=== PATIENT | male | born 1995 | race Hispanic/Latino ===

== ENCOUNTER 2016-12-12 18:58 | Emergency (ER) | payer OTHER ==
[~2016-12-12 18:58] MED LIST: LOTRIMIN CR1 %/30 GM TOP
--- NOTE | 2016-12-12 20:06 | ED GI/GU/ABDOMINAL COMPLAINT ---
History of Present Illness General Chief Complaint: Male Genitourinary Problems Stated Complaint: HEMATURIA Source: family Exam Limitations: physical impairment Vital Signs & Intake/Output Vital Signs & Intake/Output Vital Signs Date Time Temp Pulse Resp B/P Pulse O2 O2 Flow FiO2 Ox Delivery Rate 12/13 2111 98.6 99 18 94/58 95 Room Air 12/12 2025 Room Air 12/12 1903 98.9 83 20 95/62 97 Room Air ED Intake and Output 12/13 0000 12/12 1200 Intake Total Output Total 100 Balance -100 Output, Urine 100 Patient 107 lb Weight Allergies Coded Allergies: No Known Allergies (12/12/16) Reconcile Medications Albuterol Sulfate (Proair Hfa) 90 MCG HFA.AER.AD 2 PUF INH PRN ASTHMA ( Reported) Ammonium Lactate 12 % LOTION 1 CELESTE TOP DAILY SKIN (Reported) Ciprofloxacin HCl (Cipro) 250 MG TABLET 1 TAB PO BID UTI Divalproex Sodium (Divalproex Sodium ER) 500 MG TAB.ER.24H 1 TAB PO TID SEIZURES (Reported) Levetiracetam 500 MG TABLET 2 TAB PO BID SEIZURES (Reported) Oxcarbazepine 300 MG TABLET 2 TAB PO BID SEIZURES (Reported) Triage Note: TRIAGE: PT TO ER WITH STEP-SISTER AND STEP-MOTHER C/C HEMATURIA SINCE THIS MORNING. PT ROCKING BACK AND FORTH AND NON VERBAL AT BASELINE PER FAMILY THOUGH UNABLE TO SAY WHAT HIS MEDICAL HISTORY IS. Triage Nurses Notes Reviewed? 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 He is incontinent and wears a diaper at all times, twice today when they changed his diaper, they noted a small amount of blood. Patient has no history of same. No fever, no flulike illness, no vomiting, no signs that he is in any pain. He has had a normal appetite. No history of kidney stones. (SUMMER LANDRY) Past History Travel History Traveled to [place] past 21 day No Medical History Any Pertinent Medical History? 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 No (SUMMER LANDRY) Review of Systems Review of Systems Constitutional: Reports: see HPI. EENTM: Reports: no symptoms. Respiratory: Reports: no symptoms. Cardiovascular: Reports: no symptoms. GI: Reports: no symptoms. Genitourinary: Reports: see HPI. Musculoskeletal: Reports: no symptoms. Skin: Reports: no symptoms. Neurological/Psychological: Reports: no symptoms. Hematologic/Endocrine: Reports: no symptoms. Immunologic/Allergic: Reports: no symptoms. All Other Systems: Reviewed and Negative Comments Limited secondary to patient's nonverbal status (SUMMER LANDRY) Physical Exam Physical Exam Ears, Nose, Throat, Mouth: moist mucous membrane Neck: normal inspection, supple Respiratory: normal breath sounds, chest non-tender, no respiratory distress Cardiovascular: regular rate/rhythm Gastrointestinal: normal bowel sounds, soft, non-tender, no organomegaly Male Genitals: normal genitalia, small staining of blood noted in patient's diaper mixed with urine. Back: no vertebral tenderness, no CVA tenderness Skin: intact, normal color, warm/dry Comments: Hydrocephaly noted Core Measures ACS in differential dx? No Severe Sepsis Present: No Septic Shock Present: No (SUMMER LANDRY) Progress Differential Diagnosis: AAA, AMI, appendicitis, biliary colic, bowel obstruction , colon cancer, cholecystitis, diverticulitis, epididymitis, esophageal varices, gastritis, hepatitis, hernia, hemorrhoids, ischemic bowel, inflamm bowel dis, Funmilayo-Cady tear, orchitis, pancreatitis, prostatitis, peptic ulcer, PUD/GERD, perforated viscous, pyelonephritis, SBO, STD, testicular torsion, ureterolithiasis, urinary retention, urethritis, UTI/pyelo Plan of Care: Orders Procedure Date/time Status CULTURE,URINE 12/12 1954 Active URINALYSIS 12/12 1954 Complete Laboratory Tests 12/12/16 2015: Urine Color BLDY H, Urine Clarity TURBD H, Urine pH 6.5, Ur Specific [place] 1.025, Urine Protein >=300 H, Urine Ketones TRACE H, Urine Nitrite POS H, Urine Bilirubin NEG@ICTO, Urine Urobilinogen 2.0 H, Ur Leukocyte Esterase SMALL H, Ur Microscopic SEDIMENT EXAMINED, Urine RBC PACKD H, Urine WBC > 75 H, Ur Epithelial Cells FEW, Urine Bacteria MANY H, Urine Hemoglobin LARGE H, Urine Glucose NEG Microbiology 12/12 2014 URINE ROUT: Urine Culture - RES GRAM NEGATIVE RODS Initial ED EKG: none Comments: Straight cath urine sent, positive for UTI. Patient given Cipro by mouth and prescription for same, to return with signs of worsening infection, fever, nausea, vomiting, abdominal pain. Discussed with patient's family who understand and agree with plan. Urine culture was sent (SUMMER LANDRY) Departure Departure Disposition: HOME OR SELF CARE Condition: Stable Clinical Impression Primary Impression: UTI (urinary tract infection) Qualifiers: Urinary tract infection type: acute cystitis Hematuria presence: with hematuria Qualified Code: N30.01 - Acute cystitis with hematuria Referrals: UNKNOWN (PCP/Family) Additional Instructions: Take antibiotics as directed. Take Motrin and Tylenol for fever and pain. Return with worsening fever, flulike illness, nausea vomiting or back pain. Return if you are unable to keep fluids down. Departure Forms: Customer Survey General Discharge Information Prescriptions: Current Visit Scripts Ciprofloxacin HCl (Cipro) 1 TAB PO BID #14 TAB (SUMMER LANDRY) PA/DISTRICT SUPERVISOR Co-Sign Statement Statement: ED Attending supervision documentation- [] I saw and evaluated the patient. I have also reviewed all the pertinent lab results and diagnostic results. I agree with the findings and the plan of care as documented in the PA's/DISTRICT SUPERVISOR's documentation. [X] I have reviewed the ED Record and agree with the PA's/DISTRICT SUPERVISOR's documentation. [] Additions or exceptions (if any) to the PAs/DISTRICT SUPERVISOR's note and plan are summarized below: [] (LACI TAFOYA DO)
[2016-12-12] MEDS ORDERED: CIPRO250 M1 PO (20:59)
[2016-12-12] MEDS ORDERED: LEVETIRACETAM500 M2 PO (21:05)
[2016-12-12] MEDS ORDERED: OXCARBAZEPINE300 M1 PO (21:05)
[2016-12-12] MEDS ORDERED: DIVALPROEX SOD500 M3 PO (21:06)
[2016-12-12] MEDS ORDERED: PROAIR HFA8.5 GM INH (21:06)
[2016-12-12] MEDS ORDERED: AMMONIUM LACTA226 GM TOP (21:07)
[2016-12-12 21:12] VITALS: BP 94/58
== END 2016-12-12 21:16 ==
LOC: ERH 18:58
DX: N39.0 Urinary tract infection, site not specified (principal)
CPT/HCPCS: 81001; 87086

== ENCOUNTER 2017-01-24 13:17 | Inpatient (IN) | payer OTHER ==
[~2017-01-24] VITALS: Ht 157.5 cm; Wt 44.9 kg
[~2017-01-24 13:17] MED LIST changes: +AMMONIUM LACTA226 GM TOP; +CIPRO250 M1 PO; +DIVALPROEX SOD500 M3 PO; +LEVETIRACETAM500 M2 PO; +OXCARBAZEPINE300 M1 PO; +PROAIR HFA8.5 GM INH
--- NOTE | 2017-01-24 13:24 | NUR ---
PT PRESENTS TO ER WITH DAD WHO STATES SON HAS BEEN C/O OF GENERALIZED ABDOMINAL PAIN SINCE LAST NIGHT AND HAS ALSO BEEN HICCUPING ALL NIGHT. +NAUSEA PT HAS A HX OF SEIZURES AND DEVELOPMENTAL DELAYS
--- NOTE | 2017-01-24 14:52 | ED GI/GU/ABDOMINAL COMPLAINT ---
History of Present Illness General Chief Complaint: Abdominal Pain/Flank Pain Stated Complaint: VOMITING,DISTENDED ABD SINCE LAST P.M. Source: patient, family Exam Limitations: PATIENT NONVERBAL Vital Signs & Intake/Output Vital Signs & Intake/Output Vital Signs Date Time Temp Pulse Resp B/P B/P Pulse O2 O2 Flow FiO2 Mean Ox Delivery Rate 01/24 1825 97.5 110 17 122/82 99 Room Air 01/24 1659 97.0 01/24 1522 97 01/24 1521 97.0 105 16 97 Room Air 01/24 1515 99.9 01/24 1319 99.9 97 20 118/89 97 Room Air Allergies Coded Allergies: No Known Allergies (12/12/16) Reconcile Medications Albuterol Sulfate (Proair Hfa) 90 MCG HFA.AER.AD 2 PUF INH PRN ASTHMA ( Reported) Ammonium Lactate 12 % LOTION 1 CELESTE TOP DAILY SKIN (Reported) Divalproex Sodium (Divalproex Sodium ER) 500 MG TAB.ER.24H 1 TAB PO TID SEIZURES (Reported) Levetiracetam 500 MG TABLET 2 TAB PO BID SEIZURES (Reported) Oxcarbazepine 300 MG TABLET 2 TAB PO BID SEIZURES (Reported) Triage Note: PT PRESENTS TO ER WITH DAD WHO STATES SON HAS BEEN C/O OF GENERALIZED ABDOMINAL PAIN SINCE LAST NIGHT AND HAS ALSO BEEN HICCUPING ALL NIGHT. +NAUSEA PT HAS A HX OF SEIZURES AND DEVELOPMENTAL DELAYS Triage Nurses Notes Reviewed? yes HPI: Patient is a 21-year-old male with past medical history of seizures, nonverbal at baseline but in by his family for evaluation of abdominal pain, abdominal distention, vomiting. Symptoms onset yesterday. 4 episodes of vomiting since onset. Last bowel movement at 0300 today. Family reports when they pressed his abdomen at home it felt firm and distended. No episodes of diarrhea. No oral intake since yesterday. Denies sick contacts at home, suspicious food intake. (KOLTON CEE,SUMMER) Past History Travel History Traveled to [place] past 21 day No Medical History Any Pertinent Medical History? 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 No (SUMMER DREW) Review of Systems Review of Systems Constitutional: Reports: malaise. EENTM: Reports: no symptoms. Respiratory: Reports: cough. Cardiovascular: Denies: chest pain. GI: Reports: see HPI. Genitourinary: Reports: no symptoms. Musculoskeletal: Reports: no symptoms. Skin: Reports: no symptoms. Neurological/Psychological: Reports: no symptoms. Hematologic/Endocrine: Reports: no symptoms. Immunologic/Allergic: Reports: no symptoms. (SUMMER DREW) Physical Exam Physical Exam General Appearance: alert, awake Head: macrocephaly Eyes: Bilateral: normal appearance, PERRL, EOMI. Ears, Nose, Throat, Mouth: hearing grossly normal, moist mucous membrane Neck: normal inspection, supple, full range of motion Respiratory: normal breath sounds, chest non-tender, no respiratory distress, lungs clear Cardiovascular: tachycardia, regular rhythm Gastrointestinal: soft, mild diffuse distention. patient nonverbal, but appears to grimace with palpation diffusely Back: normal inspection, normal range of motion Extremities: no signs of trauma Neurologic/Psych: awake, alert Skin: intact, normal color, warm/dry Core Measures ACS in differential dx? No Severe Sepsis Present: No Septic Shock Present: No (SUMMER DREW) Progress Differential Diagnosis: appendicitis, biliary colic, diverticulitis, hernia, ischemic bowel, inflamm bowel dis, PUD/GERD, perforated viscous, pyelonephritis, SBO, ureterolithiasis Plan of Care: Orders Procedure Date/time Status Nothing by Mouth 01/25 B Active Pathway - chart 01/24 2158 Active Patient Data 01/24 2158 Active Code Status 01/24 215 Active Restraint- Medical 01/24 1853 Active LACTIC ACID 01/24 1758 Complete Admit to inpatient 01/24 1757 Active Vital Signs 01/24 1757 Active Code Status 01/24 1757 Complete NGT 01/24 1723 Active URINALYSIS 01/24 1458 Complete LIPASE 01/24 1458 Complete LACTIC ACID 01/24 1458 Complete DEPAKOTE LEVEL 01/24 1458 Complete COMPREHENSIVE METABOLIC PANEL 01/24 1458 Complete CBC WITHOUT DIFFERENTIAL 01/24 1458 Complete VTE Mechanical Prophylaxis 01/24 UNK Active Vital Signs 01/24 UNK Active NGT 01/24 UNK Active Intake & Output 01/24 UNK Active Activity/Ambulation 01/24 UNK Active Current Medications Sig/Sarina Start time Last Medication Dose Stop Time Status Admin Acetaminophen 1,000 MG Q6H 01/24 2200 UNVr (Ofirmev) 01/25 1614 N/A 1 UNIT (No Carrier) Dextrose/Sodium 1,000 ML Q8H 01/24 2200 UNVr Chloride (D5-Normal Saline) Heparin Sodium 5,000 UNIT Q8 01/24 2200 UNVr (Porcine) Levetiracetam 1,000 MG Q12 01/24 2200 UNVr (Keppra) N/A 1 UNIT (No Carrier) Ondansetron HCl 4 MG Q6P PRN 01/24 2200 UNVr (Zofran) Oxcarbazepine 600 MG BID 01/24 2200 UNVr (Trileptal 150MG Tab) Valproate Sodium 500 MG Q8 01/24 2200 UNir (Depacon 500MG/5ML Inj) Sodium Chloride 100 ML (Normal Saline 0.9%) Pantoprazole Sodium 40 MG DAILY 01/24 2154 UNVr (Protonix) Albuterol Sulfate 2 PUF EVERY 4 HRS/AWAKE .. 01/24 214 UNVr (Ventolin) Dextrose/Sodium 1,000 ML Q8H 01/24 2100 AC 01/24 Chloride 2107 (D5W-1/2 Normal Saline 1000ML) Laboratory Tests 01/24/17 1800: Lactic Acid 1.3 01/24/17 1535: Anion Gap 14, Estimated GFR > 60, BUN/Creatinine Ratio 31.8 H, Glucose 95, Lactic Acid 2.5 H, Calcium 9.3, Total Bilirubin 0.7, AST 26, ALT 37, Alkaline Phosphatase 68, Total Protein 7.2, Albumin 4.1, Globulin 3.1, Albumin/Globulin Ratio 1.3, Lipase 13 L, Valproic Acid 49.7 L 01/24/17 1515: Urine Color YEL, Urine Clarity CLEAR, Urine pH 6.0, Ur Specific [place] 1.025, Urine Protein TRACE H, Urine Ketones TRACE H, Urine Nitrite NEG, Urine Bilirubin POS@ICTO H, Urine Urobilinogen 0.2, Ur Leukocyte Esterase NEG, Ur Microscopic SEDIMENT EXAMINED, Urine RBC RARE, Urine WBC 3-5 H, Ur Epithelial Cells FEW, Urine Bacteria MOD H, Hyaline Casts 5-10 H, Urine Mucus MOD H, Urine Hemoglobin NEG, Urine Glucose NEG 01/24/17 1505: CBC w Diff MAN DIFF ORDERED, RBC 4.78, MCV 91.5, MCH 30.8, RDW 13.6, MPV 10.1, Segmented Neutrophils 27 L, Band Neutrophils 23 H, Lymphocytes 28, Monocytes 22 H, Platelet Estimate VERIFIED BY SMEAR, Normocytic RBCs VERIFIED, Normochromic RBCs VERIFIED, PUBS MCHC 33.6 1700: Patient reevaluated, appears to be resting comfortably. CT scan was reviewed. Discussed with Dr. Peacock. Dr. Baxter paged to review CT scan. 1720: Results of CT scan discussed with patient's family. NG tube ordered. Awaiting call back from surgery for patient disposition. 1730: Discussed with Dr. Baxter: place NG tube, call surgical PA after placement of tube. Discussed with and seen by Dr. Peacock. Nasogastric tube placed. Confirmed by auscultation and later by x-ray. (KOLTON CEE,SUMMER) Diagnostic Imaging: Viewed by Me: CT Scan. Discussed w/RAD: Radiology Read, CT Scan. Initial ED EKG: none Comments: PATIENT: WILLIE HANNON PRESENT AGE: 21 PATIENT ACCOUNT NO: [id number] : 95 LOCATION: [facility] ORDERING PHYSICIAN: SUMMER CEE SERVICE DATE: 01/24/17 EXAM TYPE: CAT - CT ABD & PELVIS W IV CONTRAST EXAMINATION: CT ABDOMEN AND PELVIS WITH CONTRAST CLINICAL INFORMATION: Abdominal pain. Vomiting. Tenderness. COMPARISON: None TECHNIQUE: Multidetector volumetric imaging was performed of the abdomen and pelvis after the IV administration of 68 mL of Optiray 320 intravenous contrast. Sagittal and coronal reformatted images were obtained on the technologist's workstation. DLP: 284.74 mGy-cm FINDINGS: LUNG BASES: The visualized lung bases are unremarkable. LIVER, GALLBLADDER, AND BILIARY TREE: The liver is normal in size, shape, and attenuation. No focal hepatic lesion or biliary ductal dilatation is present. The gallbladder is unremarkable with no evidence of radiopaque gallstones, gallbladder wall thickening, or obvious pericholecystic inflammatory changes. PANCREAS: Unremarkable. SPLEEN: Unremarkable. ADRENAL GLANDS: Unremarkable. KIDNEYS AND URETERS: The kidneys are normal in size, shape, and attenuation. No hydronephrosis, hydroureter, or calculi seen. No perinephric stranding. BLADDER: Bladder is partially filled. There is mild bladder wall thickening measuring 0.5 cm in diameter. No mass or calculus in the bladder. GASTROINTESTINAL TRACT: There is distention of the stomach with fluid and air without thickening of the stomach wall. There is diffuse dilatation of the small bowel. The terminal ileum and distal small bowel loops though are decompressed. Transition point difficult to identify but appears to be in the midabdomen. Bowel pattern consistent with a high-grade small bowel obstruction. No bowel wall thickening. There is a small amount of free fluid in the pelvis. No free air. There is no dilatation of large bowel. Moderate volume of scattered stool in the colon. The appendix is normal. ABDOMINAL WALL: No significant hernia is appreciated. LYMPH NODES: Normal. VASCULAR: Unremarkable. PELVIC VISCERA: Unremarkable. OSSEOUS STRUCTURES: No acute osseous abnormality. IMPRESSION: 1. High-grade small bowel obstruction. Small amount of free fluid in the pelvis but no free air. No bowel wall thickening. DICTATED BY: HARMAN PETTY MD DATE/TIME DICTATED:01/24/171703 PATENT CHEMIST:BRIAN DATE/TIME TRANSCRIBED:01/24/171703 CONFIDENTIAL, DO NOT COPY WITHOUT APPROPRIATE AUTHORIZATION. <Electronically signed in Other Vendor System> SIGNED BY: HARMAN PETTY MD 01/24/17 906 PATIENT: WILLIE HANNON PRESENT AGE: 21 PATIENT ACCOUNT NO: [id number] : 95 LOCATION: [facility] ORDERING PHYSICIAN: SUMMER CEE SERVICE DATE: 01/24/17 EXAM TYPE: RAD - XRY-PORTABLE ABDOMEN EXAMINATION: XR PORTABLE ABDOMEN CLINICAL INFORMATION: Assess nasogastric tube placement COMPARISON: CT abdomen pelvis today. TECHNIQUE: AP view of the abdomen. 6:46 PM FINDINGS: The upper abdomen is excluded from the margin of the film. Nasogastric tube is partially seen looped in the left upper quadrant at the upper margin of the film in the area the stomach. IV contrast opacifies the right and left kidneys and collecting system and bladder. Dilated small bowel loops consistent with the history of a small bowel obstruction. IMPRESSION: Nasogastric tube seen in left upper quadrant of abdomen in the stomach. DICTATED BY: HARMAN PETTY MD DATE/TIME DICTATED:01/24/171858 PATENT CHEMIST:BRIAN DATE/TIME TRANSCRIBED:01/24/171858 CONFIDENTIAL, DO NOT COPY WITHOUT APPROPRIATE AUTHORIZATION. <Electronically signed in Other Vendor System> SIGNED BY: HARMAN PETTY MD 01/24/171903 (SUMMER DREW) Departure Departure Disposition: STILL A PATIENT Condition: Stable Clinical Impression Primary Impression: Small bowel obstruction Referrals: PATIENT HAS NO PRIMARY CARE DR (PCP/Family) Departure Forms: Customer Survey General Discharge Information Admission Note Spoke With: CARL MANUEL,MAGDALENE Tao. Documentation of Exam: Documentation of any treatments & extenuating circumstances including Concerns Regarding Discharge (functional status, medication knowledge or non-compliance, living conditions, etc.) that warrant an admission rather than observation: NG tube, serial abdominal exams, IV fluids, nothing by mouth. If clinically not improving then surgical intervention. (SUMMER DREW) PA/ORDINARY SEAMAN Co-Sign Statement Statement: ED Attending supervision documentation- [X] I saw and evaluated the patient. I have also reviewed all the pertinent lab results and diagnostic results. I agree with the findings and the plan of care as documented in the PA's/ORDINARY SEAMAN's documentation. [X] I have reviewed the ED Record and agree with the PA's/ORDINARY SEAMAN's documentation. [] Additions or exceptions (if any) to the PAs/ORDINARY SEAMAN's note and plan are summarized below: [] (MATT MANUEL,RINA) Critical Care Note Critical Care Note Critical Care Time: 30-74 min (SUMMER DREW)
[2017-01-24 15:12] LABS: HEMATOCRIT 43.7 % (42-52); MEAN CORPUSCULAR HGB 30.8 PG (27.0-31.0); MEAN CORPUSCULAR HGB CONC 33.6 G/DL (33.0-37.0); MEAN CORPUSCULAR VOLUME 91.5 FL (80.0-94.0); MEAN PLATELET VOLUME 10.1 FL (7.4-10.4); PLATELET COUNT 130 /CUMM (130-400); RBC DISTRIBUTION WIDTH 13.6 % (11.5-14.5); RED BLOOD CELL CT 4.78 /CUMM (4.70-6.10)
--- NOTE | 2017-01-24 15:24 | NUR ---
NEED A REDRAW OF SST AND LACTIC PER ODALYS IN THE LAB
--- NOTE | 2017-01-24 15:24 | NUR ---
TRIAGE NOTE APPRECIATED FLUIDS INFUSING DIRECTED
--- NOTE | 2017-01-24 15:37 | NUR ---
REDRAW OF SST AND BARRON DRAWN AND SENT BY [facility].
--- NOTE | 2017-01-24 16:40 | NUR ---
PT TO CAT SCAN
--- NOTE | 2017-01-24 17:17 | CT SCAN REPORT ---
EXAMINATION: CT ABDOMEN AND PELVIS WITH CONTRAST CLINICAL INFORMATION: Abdominal pain. Vomiting. Tenderness. COMPARISON: None TECHNIQUE: Multidetector volumetric imaging was performed of the abdomen and pelvis after the IV administration of 68 mL of Optiray 320 intravenous contrast. Sagittal and coronal reformatted images were obtained on the technologist's workstation. DLP: 284.74 mGy-cm FINDINGS: LUNG BASES: The visualized lung bases are unremarkable. LIVER, GALLBLADDER, AND BILIARY TREE: The liver is normal in size, shape, and attenuation. No focal hepatic lesion or biliary ductal dilatation is present. The gallbladder is unremarkable with no evidence of radiopaque gallstones, gallbladder wall thickening, or obvious pericholecystic inflammatory changes. PANCREAS: Unremarkable. SPLEEN: Unremarkable. ADRENAL GLANDS: Unremarkable. KIDNEYS AND URETERS: The kidneys are normal in size, shape, and attenuation. No hydronephrosis, hydroureter, or calculi seen. No perinephric stranding. BLADDER: Bladder is partially filled. There is mild bladder wall thickening measuring 0.5 cm in diameter. No mass or calculus in the bladder. GASTROINTESTINAL TRACT: There is distention of the stomach with fluid and air without thickening of the stomach wall. There is diffuse dilatation of the small bowel. The terminal ileum and distal small bowel loops though are decompressed. Transition point difficult to identify but appears to be in the midabdomen. Bowel pattern consistent with a high-grade small bowel obstruction. No bowel wall thickening. There is a small amount of free fluid in the pelvis. No free air. There is no dilatation of large bowel. Moderate volume of scattered stool in the colon. The appendix is normal. ABDOMINAL WALL: No significant hernia is appreciated. LYMPH NODES: Normal. VASCULAR: Unremarkable. PELVIC VISCERA: Unremarkable. OSSEOUS STRUCTURES: No acute osseous abnormality. IMPRESSION: 1. High-grade small bowel obstruction. Small amount of free fluid in the pelvis but no free air. No bowel wall thickening.
--- NOTE | 2017-01-24 17:49 | NUR ---
PT GIVEN VERSED NG TUBE PLACED BY DR. GUTIERREZ 500ML GREEN STOMACH CONTENT RETURNED
--- NOTE | 2017-01-24 18:04 | NUR ---
REPEAT LACTIC DRAWN AND SENT BY THIS [facility].
--- NOTE | 2017-01-24 18:57 | NUR ---
PT PULLING NG TUBE PARENTS HOLDING HIS HAND PT UPPER EXT. IN SOFT RESTRIANTS
--- NOTE | 2017-01-24 19:04 | RADIOLOGY REPORT ---
EXAMINATION: XR PORTABLE ABDOMEN CLINICAL INFORMATION: Assess nasogastric tube placement COMPARISON: CT abdomen pelvis today. TECHNIQUE: AP view of the abdomen. 6:46 PM FINDINGS: The upper abdomen is excluded from the margin of the film. Nasogastric tube is partially seen looped in the left upper quadrant at the upper margin of the film in the area the stomach. IV contrast opacifies the right and left kidneys and collecting system and bladder. Dilated small bowel loops consistent with the history of a small bowel obstruction. IMPRESSION: Nasogastric tube seen in left upper quadrant of abdomen in the stomach.
--- NOTE | 2017-01-24 19:17 | NUR ---
PT CARE ASSUMED BY THIS RN AT THIS TIME. PT FAMILY REMAINS AT BEDSIDE. NG TUBE IN RIGHT NOSTRIL AT 70 JAS DRAINING GREEN BILE. INFORMED WAITING PERFORMED, FAMILY OFFERS NO COMPLAINTS AT THIS TIME. NURSING WILL CONTINUE TO MONITOR PT.
--- NOTE | 2017-01-24 21:07 | NUR ---
FLUIDS HUNG PER EMAR. PT REMAINS IN BEHAVIORAL RESTRAINTS, + CMS TO BUE. PT APPEARS TO BE RESTING COMFORTABLY ON BED. FAMILY OFFERS NO COMPLAINTS AT THIS TIME. NG TUBE DRAINING GREEN BILE 125ML NOTED IN CONTAINER AT THIS TIME.
--- NOTE | 2017-01-24 22:07 | Admission Core Measures ---
Admission Lab Results I reviewed the following labs: Laboratory Tests 01/24 01/24 01/24 1800 1535 1515 Chemistry Sodium (137 - 145 mmol/L) 134 L Potassium (3.5 - 5.1 mmol/L) 4.9 Chloride (98 - 107 mmol/L) 95 L Carbon Dioxide (22 - 30 mmol/L) 26 Anion Gap (5 - 16) 14 BUN (9 - 20 mg/dL) 35 H Creatinine (0.7 - 1.2 mg/dL) 1.1 Estimated GFR (>60 ml/min) > 60 BUN/Creatinine Ratio (7 - 25 %) 31.8 H Glucose (65 - 99 mg/dL) 95 Lactic Acid (0.7 - 2.1 mmol/L) 1.3 2.5 H Calcium (8.4 - 10.2 mg/dL) 9.3 Total Bilirubin (0.2 - 1.3 mg/dL) 0.7 AST (17 - 59 U/L) 26 ALT (21 - 72 U/L) 37 Alkaline Phosphatase (< 127 U/L) 68 Total Protein (6.3 - 8.2 g/dL) 7.2 Albumin (3.5 - 5.0 g/dL) 4.1 Globulin (1.9 - 4.2 gm/dL) 3.1 Albumin/Globulin Ratio (1.1 - 2.2 %) 1.3 Lipase (23 - 300 U/L) 13 L Toxicology Valproic Acid (50 - 120 ug/mL) 49.7 L Urines Urine Color (YEL,AMB,STR) YEL Urine Clarity (CLEAR) CLEAR Urine pH (5.0 - 8.0) 6.0 Ur Specific [place] (1.001 - 1.035) 1.025 Urine Protein (NEG,<30 MG/DL) TRACE H Urine Ketones (NEG) TRACE H Urine Nitrite (NEG) NEG Urine Bilirubin (NEG) POS@ICTO H Urine Urobilinogen (0.1 - 1.0 EU/dl) 0.2 Ur Leukocyte Esterase (NEG) NEG Ur Microscopic SEDIMENT EXAMINED Urine RBC (0 - 5 /HPF) RARE Urine WBC (0 - 2 /HPF) 3-5 H Ur Epithelial Cells (NONE,FEW) FEW Urine Bacteria (NEG/NONE) MOD H Hyaline Casts (0/LPF) 5-10 H Urine Mucus (FEW,NONE) MOD H Urine Hemoglobin (NEG) NEG Urine Glucose (N MG/DL) NEG 01/24 1505 Hematology CBC w Diff MAN DIFF ORDERED WBC (4.8 - 10.8 /CUMM) 4.0 L RBC (4.70 - 6.10 /CUMM) 4.78 Hgb (14.0 - 18.0 G/DL) 14.7 Hct (42 - 52 %) 43.7 MCV (80.0 - 94.0 FL) 91.5 MCH (27.0 - 31.0 PG) 30.8 RDW (11.5 - 14.5 %) 13.6 Plt Count (130 - 400 /CUMM) 130 MPV (7.4 - 10.4 FL) 10.1 Segmented Neutrophils (42.2 - 75.2 %) 27 L Band Neutrophils (0.0 - 5.0 %) 23 H Lymphocytes (20.5 - 51.1 %) 28 Monocytes (1.7 - 9.3 %) 22 H Platelet Estimate (ADEQUATE) VERIFIED BY SMEAR Normocytic RBCs VERIFIED Normochromic RBCs VERIFIED PUBS MCHC (33.0 - 37.0 G/DL) 33.6 Admission Meds I reviewed the following Meds: Current Medications Sig/Sarina Start time Last Medication Dose Stop Time Status Admin Acetaminophen 1,000 MG Q6H 01/24 220 UNVr (Ofirmev) 01/25 1614 N/A 1 UNIT (No Carrier) Albuterol Sulfate 2 PUF EVERY 4 HRS/AWAKE .. 01/24 2145 UNVr (Ventolin) Dextrose/Sodium 1,000 ML Q8H 01/24 2200 UNVr Chloride (D5-Normal Saline) Dextrose/Sodium 1,000 ML Q8H 01/24 2100 AC 01/24 Chloride 2107 (D5W-1/2 Normal Saline 1000ML) Heparin Sodium 5,000 UNIT Q8 01/24 2200 UNVr (Porcine) Levetiracetam 1,000 MG Q12 01/24 220 UNVr (Keppra) N/A 1 UNIT (No Carrier) Ondansetron HCl 4 MG Q6P PRN 01/24 2200 UNVr (Zofran) Oxcarbazepine 600 MG BID 01/24 2200 UNVr (Trileptal 150MG Tab) Pantoprazole Sodium 40 MG DAILY 01/24 2154 UNVr (Protonix) Valproate Sodium 500 MG Q8 / 2200 UNir (Depacon 500MG/5ML Inj) Sodium Chloride 100 ML (Normal Saline 0.9%) Acute Coronary Syndrome Inclusion Criteria ACS Diagnosis No Inpatient Core Measures LDL Reminder: If No, please order W/I first 24hr of stay Congestive Heart Failure Inclusion Criteria CHF Diagnosis No Cerebrovascular accident Inclusion Criteria CVA/TIA Diagnosis No Inpatient Core Measures Bedside Swallow Eval Reminder: If BSE failed, place ST order Antithrombotic Reminder: Order Antithrombotic Medication by end of day 2 Antithrombotic Reminder: Document Reason Antithrombotic Not ordered by end of day 2 AFIB/Flutter Reminder: If Present, add to problem list AFIB/Flutter Reminder: Order Anticoag Medication for pts with AFIB/Flutter Atherosclerosis Reminder: If Present, add to problem list LDL Reminder: If No, please order W/I first 24hr of stay PT Order Reminder: If No, please order Venous thromboembolism Inpatient Core Measures VTE Risk Factors: [facility] medical [facility] prophylaxis d/t No contraindications No VTE Pharm Prophylaxis d/t No contraindications Inclusion Criteria - Per Current guidelines, there needs to be overlap - treatment for the first 5 days of Warfarin therapy. - Parenteral Anticoagulation (IV or SC) needs to be - given along with Warfarin therapy. VTE Diagnosis No VTE Type NONE VTE Confirmed by (Test) NONE Problem List As ranked by this Provider includes Assessment & Plan 1. Small bowel obstruction HOME MEDS Home Med List Albuterol Sulfate (Proair Hfa) 90 MCG HFA.AER.AD 2 PUF INH PRN ASTHMA ( Reported) Ammonium Lactate 12 % LOTION 1 CELESTE TOP DAILY SKIN (Reported) Divalproex Sodium (Divalproex Sodium ER) 500 MG TAB.ER.24H 1 TAB PO TID SEIZURES (Reported) Levetiracetam 500 MG TABLET 2 TAB PO BID SEIZURES (Reported) Oxcarbazepine 300 MG TABLET 2 TAB PO BID SEIZURES (Reported)
--- NOTE | 2017-01-24 23:32 | NUR ---
PT MEDICATED PER EMAR. SURGICAL PA PAGED REGARDING PO MEDICATION WITH NG TUBE. REPORT GIVEN TO TANA WALL AT THIS TIME.
--- NOTE | 2017-01-25 | NUR ---
SURGICAL PA AT BEDSIDE.
--- NOTE | 2017-01-25 01:35 | NUR ---
PT RESTING. VSS.
--- NOTE | 2017-01-25 03:27 | NUR ---
PT RESTING ON STRETCHER. FAMILY AT BEDSIDE.
--- NOTE | 2017-01-25 04:13 | NUR ---
PT MEDICATED WITH OFIRMEV PER EMAR.
--- NOTE | 2017-01-25 05:54 | NUR ---
BLOODWORK OBTAINED AND SENT TO LAB (FREDY, CHAVA, BLUE).
--- NOTE | 2017-01-25 06:03 | NUR ---
PT MEDICATED PER EMAR.
[2017-01-25 06:04] LABS: MEAN CORPUSCULAR HGB 30.8 PG (27.0-31.0); MEAN CORPUSCULAR VOLUME 93.1 FL (80.0-94.0); MEAN PLATELET VOLUME 10.4 FL (7.4-10.4); RBC DISTRIBUTION WIDTH 13.6 % (11.5-14.5); RED BLOOD CELL CT 3.93 /CUMM (4.70-6.10); WHITE BLOOD CELL COUNT 3.2 /CUMM (4.8-10.8)
[2017-01-25 06:34] LABS: HEMATOCRIT 36.6 % (42-52); PLATELET COUNT 110 /CUMM (130-400)
[2017-01-25 06:45] VITALS: BP 97/64
--- NOTE | 2017-01-25 07:29 | NUR ---
REPORT GIVEN TO TANA SAAVEDRA AND TANA RAHMAN.
--- NOTE | 2017-01-25 07:30 | NUR ---
ASSUMED CARE, IV INFUSING, NG TUBE DRAINING GREEN LIQUID.
--- NOTE | 2017-01-25 09:11 | PN- General Surgery ---
See Addendum Subjective Subjective: The patient was seen this morning. He is nonverbal but appears to be in no obvious distress however he is continuously burping. There were no issues overnight per nursing and his NG tube drained approximately 125 ML's overnight. The patient has not had a bowel movement since being in the emergency department. Objective Vital Signs and I&Os Vital Signs Date Time Temp Pulse Resp B/P B/P Pulse O2 O2 Flow FiO2 Mean Ox Delivery Rate 01/25 0645 97.8 100 18 97/64 91 Room Air 01/25 0552 97.8 100 18 97/64 91 Room Air 01/25 0136 97.9 01/25 0135 97.9 90 18 110/70 94 Room Air 01/24 1825 97.5 110 17 122/82 99 Room Air 01/24 1659 97.0 01/24 1522 97 01/24 1521 97.0 105 16 97 Room Air 01/24 1515 99.9 01/24 1319 99.9 97 20 118/89 97 Room Air Intake & Output 01/25 1600 01/25 0800 01/25 0000 01/24 1600 01/24 0800 01/24 0000 Intake Total 300 2050 1100 Output Total 450 Balance 300 1600 1100 Intake, IV 1000 1100 Intake, Other 300 1050 Output, 450 Gastric Drainage Patient 99 lb 15.99 oz 99 lb 15.99 oz Weight Laboratory Tests 01/25 01/24 01/24 0551 1800 1535 Chemistry Sodium (137 - 145 mmol/L) 136 L 134 L Potassium (3.5 - 5.1 mmol/L) 4.2 4.9 Chloride (98 - 107 mmol/L) 99 95 L Carbon Dioxide (22 - 30 mmol/L) 28 26 Anion Gap (5 - 16) 10 14 BUN (9 - 20 mg/dL) 24 H 35 H Creatinine (0.7 - 1.2 mg/dL) 0.8 1.1 Estimated GFR (>60 ml/min) > 60 > 60 BUN/Creatinine Ratio (7 - 25 %) 30.0 H 31.8 H Glucose (65 - 99 mg/dL) 95 Lactic Acid (0.7 - 2.1 mmol/L) 1.3 2.5 H Calcium (8.4 - 10.2 mg/dL) 9.3 Total Bilirubin (0.2 - 1.3 mg/dL) 0.7 AST (17 - 59 U/L) 26 ALT (21 - 72 U/L) 37 Alkaline Phosphatase (< 127 U/L) 68 Total Protein (6.3 - 8.2 g/dL) 7.2 Albumin (3.5 - 5.0 g/dL) 4.1 Globulin (1.9 - 4.2 gm/dL) 3.1 Albumin/Globulin Ratio (1.1 - 2.2 %) 1.3 Lipase (23 - 300 U/L) 13 L Hematology CBC w Diff MAN DIFF ORDERED WBC (4.8 - 10.8 /CUMM) 3.2 L RBC (4.70 - 6.10 /CUMM) 3.93 L Hgb (14.0 - 18.0 G/DL) 12.1 L Hct (42 - 52 %) 36.6 L MCV (80.0 - 94.0 FL) 93.1 MCH (27.0 - 31.0 PG) 30.8 RDW (11.5 - 14.5 %) 13.6 Plt Count (130 - 400 /CUMM) 110 L MPV (7.4 - 10.4 FL) 10.4 Segmented Neutrophils (42.2 - 75.2 %) 26 L Band Neutrophils (0.0 - 5.0 %) 12 H Lymphocytes (20.5 - 51.1 %) 40 Monocytes (1.7 - 9.3 %) 20 H Eosinophils (0 - 5.0 %) 2 Platelet Estimate (ADEQUATE) DECREASED Normocytic RBCs VERIFIED Normochromic RBCs VERIFIED PUBS MCHC (33.0 - 37.0 G/DL) 33.0 Other Body Source Fld Total RBCs Counted (%) 100 Toxicology Valproic Acid (50 - 120 ug/mL) 49.7 L 01/24 01/24 1515 1505 Hematology CBC w Diff MAN DIFF ORDERED WBC (4.8 - 10.8 /CUMM) 4.0 L RBC (4.70 - 6.10 /CUMM) 4.78 Hgb (14.0 - 18.0 G/DL) 14.7 Hct (42 - 52 %) 43.7 MCV (80.0 - 94.0 FL) 91.5 MCH (27.0 - 31.0 PG) 30.8 RDW (11.5 - 14.5 %) 13.6 Plt Count (130 - 400 /CUMM) 130 MPV (7.4 - 10.4 FL) 10.1 Segmented Neutrophils (42.2 - 75.2 %) 27 L Band Neutrophils (0.0 - 5.0 %) 23 H Lymphocytes (20.5 - 51.1 %) 28 Monocytes (1.7 - 9.3 %) 22 H Platelet Estimate (ADEQUATE) VERIFIED BY SMEAR Normocytic RBCs VERIFIED Normochromic RBCs VERIFIED PUBS MCHC (33.0 - 37.0 G/DL) 33.6 Urines Urine Color (YEL,AMB,STR) YEL Urine Clarity (CLEAR) CLEAR Urine pH (5.0 - 8.0) 6.0 Ur Specific [place] (1.001 - 1.035) 1.025 Urine Protein (NEG,<30 MG/DL) TRACE H Urine Ketones (NEG) TRACE H Urine Nitrite (NEG) NEG Urine Bilirubin (NEG) POS@ICTO H Urine Urobilinogen (0.1 - 1.0 EU/dl) 0.2 Ur Leukocyte Esterase (NEG) NEG Ur Microscopic SEDIMENT EXAMINED Urine RBC (0 - 5 /HPF) RARE Urine WBC (0 - 2 /HPF) 3-5 H Ur Epithelial Cells (NONE,FEW) FEW Urine Bacteria (NEG/NONE) MOD H Hyaline Casts (0/LPF) 5-10 H Urine Mucus (FEW,NONE) MOD H Urine Hemoglobin (NEG) NEG Urine Glucose (N MG/DL) NEG Physical Exam: Gen.: Alert, nonverbal, and in no obvious distress Skin: Warm and dry Abdomen: Softly distended, mild generalized tenderness without rebound or guarding, bowel sounds positive. Extremities: Bilateral lower extremities are warm without calf tenderness Assessment/Plan Assessment/Plan Assessment: 21-year-old male admitted for a high-grade small bowel obstruction. Patient is currently being conservatively managed with bowel rest and NG tube decompression. Plan: Continue nothing by mouth and hydration NG tube to suction Follow-up morning laboratory studies and multiview x-ray GI and DVT prophylaxis PRN pain medications, antiemetics, and antipyretics Sebas Baxter MD to see patient this morning Core Measures/Miscellaneous Venous Thromboembolism VTE Risk Factors: Immobility, paresis VTE Contraindications: No Contraindications VTE Diagnosis: No VTE Type: NONE VTE Confirmed by (Test): NONE Beta Dee Dee Is Beta Dee Dee a Home Med? No Antibiotics Is Patient on Antibiotics? No
--- NOTE | 2017-01-25 09:32 | RADIOLOGY REPORT ---
EXAMINATION: XR ABDOMEN MULTIPLE VIEWS CLINICAL INDICATION: Abdominal pain and distention. Presumptive diagnosis of small bowel obstruction. COMPARISON: Portable view of the abdomen dated 01/24/[address] scan of the abdomen and pelvis dated 01/24/2017. TECHNIQUE: Supine and upright views of the abdomen were performed. FINDINGS: Enteric tube is seen coiled within the gastric fundus. There is persistent gaseous distention and dilatation of small bowel loops in the upper abdomen with scattered air-fluid levels on the upright view. There is some gas seen within the left colon and sigmoid colon. Contrast within the bladder obscures assessment of the pelvis for rectal gas. When compared to the prior KUB, findings are similar and are consistent with a high-grade partial bowel obstruction. No free air is noted. Included lung bases are clear. IMPRESSION: No significant change in high-grade partial small bowel obstruction.
--- NOTE | 2017-01-25 10:48 | NUR ---
[facility] ASSIGNMENT [phone]
--- NOTE | 2017-01-25 11:30 | NUR ---
FAMILY INFORMED OF BED IN HOUSE, TRANSPORT BOOKED.
[2017-01-25 12:11] VITALS: BP 98/68
[2017-01-25 14:53] VITALS: BP 90/68
[2017-01-25 22:34] VITALS: BP 92/58
--- NOTE | 2017-01-25 22:52 | NUR ---
NGT PUTTING OUT ONLY SCANT AMOUNT OF DRAINAGE. COLEMAN DONATO MADE AWARE. PER PA, NURSING TO PULL NGT OUT 2 INCHES. ALSO, PT DID NOT VOID DURING THIS SHIFT. PER PA, STRAIGHT CATH IF STILL NO URINE BY 1AM. PT NON VERBAL, SMILING, APPEARS IN NO DITRESS. CONTINUE TO MONITOR.
[2017-01-26 06:28] VITALS: BP 110/60
--- NOTE | 2017-01-26 07:40 | PN- General Surgery ---
Subjective Subjective: The patient was seen this morning. He is nonverbal but appears comfortable and in a cheerful mood. There were no issues overnight per nursing staff. Objective Vital Signs and I&Os Vital Signs Date Time Temp Pulse Resp B/P B/P Pulse O2 O2 Flow FiO2 Mean Ox Delivery Rate 01/27 628 98.7 85 20 110/60 100 Room Air 01/25 2234 99.9 96 20 92/58 94 Room Air 01/25 1453 98.6 82 20 90/68 94 01/25 1211 98.0 89 20 98/68 97 01/25 1011 97.9 80 20 104/63 98 Room Air Intake & Output 01/26 0801/26 0000 01/25 1600 01/25 0800 01/25 0000 01/24 1600 Intake Total 1726 794 4053 300 2050 1100 Output Total 0 10 450 Balance 3831 912 3518 300 1600 1100 Intake, IV 4873 409 2558 1000 1100 Intake, Other 60 300 1050 Number 0 Bowel Movements Output, 0 10 450 Gastric Drainage Patient 99 lb 15.99 oz 99 lb 15.99 oz Weight Physical Exam: Gen.: Alert/nonverbal and in no apparent distress Skin: Warm and dry Abdomen: Soft, mildly distended, nontender, bowel sounds positive.(Improved from prior exam) Extremities: Bilateral lower extremities are warm without significant edema Assessment/Plan Assessment/Plan Assessment: 21-year-old male being conservatively managed for a small bowel obstruction. The patient's exam is somewhat improved. He has yet to have a bowel movement and his NG tube has scant output. Plan: Follow-up morning laboratory studies and multiview x-ray Out of bed Continue nothing by mouth and NG tube decompression GI and DVT prophylaxis PRN pain medication, antiemetics, antipyretics Serial abdominal exams Irrigate NG tube to ensure patency Core Measures/Miscellaneous Venous Thromboembolism VTE Risk Factors: Immobility, paresis VTE Contraindications: No Contraindications VTE Diagnosis: No VTE Type: NONE VTE Confirmed by (Test): NONE Beta Dee Dee Is Beta Dee Dee a Home Med? No Antibiotics Is Patient on Antibiotics? No
[2017-01-26 08:02] LABS: ABSOLUTE BASOPHIL COUNT 0 /CUMM (0.0-0.2); ABSOLUTE EOSINOPHIL COUNT 0 /CUMM (0.0-0.7); ABSOLUTE GRANULOCYTE CT 1.4 /CUMM (1.4-6.5); ABSOLUTE LYMPH COUNT 1.3 /CUMM (1.2-3.4); ABSOLUTE MONOCYTE COUNT 0.6 /CUMM (0.10-0.60); EOSINOPHIL % 0.7 % (0-5); GRANULOCYTE % 42.4 % (42.2-75.2)
[2017-01-26 08:27] LABS: BASOPHIL % 0.3 % (0.0-2.0); MEAN CORPUSCULAR HGB 30.3 PG (27.0-31.0); MEAN CORPUSCULAR HGB CONC 32.9 G/DL (33.0-37.0); MEAN CORPUSCULAR VOLUME 92.2 FL (80.0-94.0); MEAN PLATELET VOLUME 9.8 FL (7.4-10.4); PLATELET COUNT 87 /CUMM (130-400); RBC DISTRIBUTION WIDTH 13.4 % (11.5-14.5); RED BLOOD CELL CT 3.37 /CUMM (4.70-6.10); WHITE BLOOD CELL COUNT 3.3 /CUMM (4.8-10.8)
[2017-01-26 08:28] LABS: HEMATOCRIT 31.1 % (42-52)
--- NOTE | 2017-01-26 13:44 | RADIOLOGY REPORT ---
EXAMINATION: XR ABDOMEN MULTIPLE VIEWS CLINICAL INDICATION: Follow-up of small bowel obstruction. COMPARISON: Two-view abdomen dated 01/25/2017. TECHNIQUE: Supine and upright views of the abdomen. FINDINGS: An enteric tube is seen coiled within the gastric fundus with tip pointing towards the GE junction. There is continued moderate gaseous distention of small bowel loops in the midabdomen with now suspicion of bowel wall thickening seen. There is, however, increased luminal gas seen within the ascending colon and continued gas is seen in the splenic flexure, descending colon and rectal region. No free air is noted. Lung bases are clear. IMPRESSION: 1. Ongoing partial small bowel obstruction is seen. There may be interval development of mild bowel wall edema and thickening. Clinical correlation is requested. 2. No evidence of bowel perforation. Findings discussed with Dr. Baxter 01/26/2017, 1:30 PM.
[2017-01-26 14:26] VITALS: BP 108/64
--- NOTE | 2017-01-26 18:23 | NUR ---
AT APPROX 1610, PATIENT'S NGT CAME OUT WHEN TRANSFERRING TO [facility]-THROUGH A MESSAGE-WAS IN OR- HE WAS TOLD NGT CAME OUT-HE STATED "OK" AWAIT FURTHER INSTRUCTIONS??
--- NOTE | 2017-01-26 18:43 | NUR ---
DR HYLTON CAME TO SEE PATIENT OK TO LEAVE NGT OUT FOR NOW, CONCERN IF PATIENT STARTS VOMITING NEED TO F/U WITH SX PA TO CHANGE ORDER AND CANCEL ORDE FOR RESTRAINTS WILL INFORM ONCOMING RN OF STATUS
--- NOTE | 2017-01-26 20:01 | NUR ---
CALLED SURG COLEMAN LARSON TO REACTIVATE DANNIELLE UPPER SOFT WRIST RESTRAINTS BECAUSE PT PULLS AT HIS IV LINE PER FATHER.
[2017-01-26 22:23] VITALS: BP 108/60
--- NOTE | 2017-01-26 23:50 | PN- General Surgery ---
Subjective Subjective: Follow-up with small bowel obstruction, his father's at the bedside says he's hungry doesn't have abdominal pain but he hasn't noticed any flatus no more hiccups NG tube inadvertently fell out recently Objective Vital Signs and I&Os I reviewed I reviewed Vital Signs Date Time Temp Pulse Resp B/P B/P Pulse O2 O2 Flow FiO2 Mean Ox Delivery Rate 01/26 2223 98.9 83 20 108/60 96 Room Air 01/26 1426 98.1 88 20 108/64 98 Room Air 01/26 0628 98.7 85 20 110/60 100 Room Air I reviewed Intake & Output 01/26 1600 01/26 0800 01/26 0000 01/25 1600 01/26 0800 01/25 0000 Intake Total 635 7659 392 6817 300 2050 Output Total 200 0 10 450 Balance 435 4644 849 9527 300 1600 Intake, IV 635 9772 931 0993 1000 Intake, Oral 0 Intake, Other 60 300 1050 Number 0 Bowel Movements Output, 200 0 10 450 Gastric Drainage Patient 99 lb 0.01 oz 99 lb 15.99 oz Weight Physical Exam: Constitutional: no acute distress no pain Eyes: sclera anicteric ENMT: moist mucous membranes Cardiovascular: S1-S2 no murmurs no peripheral edema Respiratory: clear to auscultation with normal respiratory effort and no intercostal retractions GI: abdomen soft nontender nondistended, positive bowel sounds on auscultation Extremities / lymphatics: free range of motion no peripheral edema Skin: no jaundice no rashes warm, nondiaphoretic Psychiatric: mood and affect are appropriate and alert and oriented to person place and time Current Medications: I reviewed Current Medications Sig/Sarina Start time Last Medication Dose Route Stop Time Status Admin Albuterol Sulfate 2 PUF EVERY 4 HRS/AWAKE .. 01/24 2145 AC INH Dextrose/Sodium 1,000 ML Q8H 01/24 2200 DC 01/26 Chloride IV 0204 Heparin Sodium 5,000 UNIT Q8 01/24 2200 AC 01/26 (Porcine) SC 2141 Levetiracetam 1,000 MG Q12 01/24 2200 AC 01/26 N/A 1 UNIT IV 213 Ondansetron HCl 4 MG Q6P PRN 01/24 2200 AC IV Oxcarbazepine 600 MG BID 01/24 2200 AC 01/26 PO 1017 Pantoprazole Sodium 40 MG DAILY 01/24 2154 AC 01/26 IV 1017 Patient Medication 1 ED .STK-MED ONE 01/26 1405 DC Teaching ED 01/26 1406 Potassium Chloride 20 MEQ Q10H 01/26 0930 01/26 Dextrose/Sodium 1,000 ML IV 2146 Chloride Valproate Sodium 500 MG Q8 01/24 2200 AC 01/26 Sodium Chloride 100 ML IV 2139 Results Last 48 Hours of Labs: I reviewed Laboratory Tests 01/26 01/25 0740 0551 Chemistry Sodium (137 - 145 mmol/L) 136 L 136 L Potassium (3.5 - 5.1 mmol/L) 4.0 4.2 Chloride (98 - 107 mmol/L) 105 99 Carbon Dioxide (22 - 30 mmol/L) 23 28 Anion Gap (5 - 16) 8 10 BUN (9 - 20 mg/dL) 11 24 H Creatinine (0.7 - 1.2 mg/dL) 0.6 L 0.8 Estimated GFR (>60 ml/min) > 60 > 60 BUN/Creatinine Ratio (7 - 25 %) 18.3 30.0 H Hematology CBC w Diff NO MAN DIFF REQ MAN DIFF ORDERED WBC (4.8 - 10.8 /CUMM) 3.3 L 3.2 L RBC (4.70 - 6.10 /CUMM) 3.37 L 3.93 L Hgb (14.0 - 18.0 G/DL) 10.2 L 12.1 L Hct (42 - 52 %) 31.1 L 36.6 L MCV (80.0 - 94.0 FL) 92.2 93.1 MCH (27.0 - 31.0 PG) 30.3 30.8 RDW (11.5 - 14.5 %) 13.4 13.6 Plt Count (130 - 400 /CUMM) 87 L 110 L MPV (7.4 - 10.4 FL) 9.8 10.4 Gran % (42.2 - 75.2 %) 42.4 Lymphocytes % (20.5 - 51.1 %) 40.0 Monocytes % (1.7 - 9.3 %) 16.6 H Eosinophils % (0 - 5 %) 0.7 Basophils % (0.0 - 2.0 %) 0.3 Absolute Granulocytes (1.4 - 6.5 /CUMM) 1.4 Segmented Neutrophils (42.2 - 75.2 %) 26 L Band Neutrophils (0.0 - 5.0 %) 12 H Absolute Lymphocytes (1.2 - 3.4 /CUMM) 1.3 Lymphocytes (20.5 - 51.1 %) 40 Monocytes (1.7 - 9.3 %) 20 H Absolute Monocytes (0.10 - 0.60 /CUMM) 0.6 Eosinophils (0 - 5.0 %) 2 Absolute Eosinophils (0.0 - 0.7 /CUMM) 0 Absolute Basophils (0.0 - 0.2 /CUMM) 0 Platelet Estimate (ADEQUATE) DECREASED Normocytic RBCs VERIFIED Normochromic RBCs VERIFIED PUBS MCHC (33.0 - 37.0 G/DL) 32.9 L 33.0 Other Body Source Fld Total RBCs Counted (%) 100 Assessment/Plan Assessment/Plan Impression is partial small bowel obstruction gradual improvement but the situation is difficult to read based on the patient's mental status his father says that his abdomen appears to him back to baseline I explained that he doesn' t improve significantly have to take him to the operating room but so far so good I would hold off on NG tube unless he becomes nauseous again also his father adds that may be he inadvertently ate some small thad so we'll have to reevaluate the CT scan but there was no obvious foreign body there. Otherwise continue present care bowel rest IV fluids which was decreased today Core Measures/Miscellaneous Venous Thromboembolism VTE Risk Factors: Immobility, paresis VTE Contraindications: No Contraindications VTE Diagnosis: No VTE Type: NONE VTE Confirmed by (Test): NONE Beta Dee Dee Is Beta Dee Dee a Home Med? No Antibiotics Is Patient on Antibiotics? No
[2017-01-27 06:34] VITALS: BP 112/66
[2017-01-27 07:56] LABS: ABSOLUTE BASOPHIL COUNT 0 /CUMM (0.0-0.2); ABSOLUTE EOSINOPHIL COUNT 0 /CUMM (0.0-0.7); ABSOLUTE GRANULOCYTE CT 1.8 /CUMM (1.4-6.5); ABSOLUTE LYMPH COUNT 1.3 /CUMM (1.2-3.4); ABSOLUTE MONOCYTE COUNT 0.5 /CUMM (0.10-0.60); BASOPHIL % 0.3 % (0.0-2.0); EOSINOPHIL % 0.9 % (0-5); GRANULOCYTE % 50.2 % (42.2-75.2); HEMATOCRIT 32.4 % (42-52); MEAN CORPUSCULAR HGB 30.7 PG (27.0-31.0); MEAN CORPUSCULAR HGB CONC 32.9 G/DL (33.0-37.0); MEAN CORPUSCULAR VOLUME 93.3 FL (80.0-94.0); MEAN PLATELET VOLUME 9.3 FL (7.4-10.4); PLATELET COUNT 93 /CUMM (130-400); RBC DISTRIBUTION WIDTH 13.6 % (11.5-14.5); RED BLOOD CELL CT 3.47 /CUMM (4.70-6.10); WHITE BLOOD CELL COUNT 3.7 /CUMM (4.8-10.8)
--- NOTE | 2017-01-27 10:10 | PN- General Surgery ---
Subjective Subjective: Pt continues to appear more comfortable, but unable to state complaints due to baseline mental state (nonverbal). NGT fell out inadvertently last night, but there have been no reports of increasing distention or emesis. Pt's father reported to Dr. Baxter that the pt was hungry yesterday. No BM reported as of yet. +urinary incontinence as per baseline. Objective Vital Signs and I&Os Vital Signs Date Time Temp Pulse Resp B/P B/P Pulse O2 O2 Flow FiO2 Mean Ox Delivery Rate 01/27 0634 98.7 70 20 112/66 96 Room Air 01/26 2223 98.9 83 20 108/60 96 Room Air 01/26 1426 98.1 88 20 108/64 98 Room Air Intake & Output 01/27 0801/27 0000 01/26 1600 01/26 0801/26 0000 Intake Total 800 405 109 0081 800 Output Total 100 200 0 10 Balance 800 339 564 1149 790 Intake, IV 800 952 937 0952 800 Intake, Oral 0 Number 0 0 Bowel Movements Output, 100 200 0 10 Gastric Drainage Patient 99 lb 0.01 oz Weight Physical Exam: Gen: Pt is awake and alert. He does not appear in distress. Cardiac: regular Pulm: cta Abdomen: Soft, nondistended. Unable to assess tenderness. Pt winces during exam, but this finding is reciprocated upon exam of other areas (arms and legs). +BS Results Last 48 Hours of Labs: Laboratory Tests 01/27 01/26 0654 0740 Chemistry Sodium (137 - 145 mmol/L) 137 136 L Potassium (3.5 - 5.1 mmol/L) 4.0 4.0 Chloride (98 - 107 mmol/L) 103 105 Carbon Dioxide (22 - 30 mmol/L) 23 23 Anion Gap (5 - 16) 11 8 BUN (9 - 20 mg/dL) 8 L 11 Creatinine (0.7 - 1.2 mg/dL) 0.6 L 0.6 L Estimated GFR (>60 ml/min) > 60 > 60 BUN/Creatinine Ratio (7 - 25 %) 13.3 18.3 Hematology CBC w Diff NO MAN DIFF REQ NO MAN DIFF REQ WBC (4.8 - 10.8 /CUMM) 3.7 L 3.3 L RBC (4.70 - 6.10 /CUMM) 3.47 L 3.37 L Hgb (14.0 - 18.0 G/DL) 10.6 L 10.2 L Hct (42 - 52 %) 32.4 L 31.1 L MCV (80.0 - 94.0 FL) 93.3 92.2 MCH (27.0 - 31.0 PG) 30.7 30.3 RDW (11.5 - 14.5 %) 13.6 13.4 Plt Count (130 - 400 /CUMM) 93 L 87 L MPV (7.4 - 10.4 FL) 9.3 9.8 Gran % (42.2 - 75.2 %) 50.2 42.4 Lymphocytes % (20.5 - 51.1 %) 35.9 40.0 Monocytes % (1.7 - 9.3 %) 12.7 H 16.6 H Eosinophils % (0 - 5 %) 0.9 0.7 Basophils % (0.0 - 2.0 %) 0.3 0.3 Absolute Granulocytes (1.4 - 6.5 /CUMM) 1.8 1.4 Absolute Lymphocytes (1.2 - 3.4 /CUMM) 1.3 1.3 Absolute Monocytes (0.10 - 0.60 /CUMM) 0.5 0.6 Absolute Eosinophils (0.0 - 0.7 /CUMM) 0 0 Absolute Basophils (0.0 - 0.2 /CUMM) 0 0 PUBS MCHC (33.0 - 37.0 G/DL) 32.9 L 32.9 L Assessment/Plan Assessment/Plan Pt is a 21 yo M, now HD #3 with high grade sbo. Pt appears to be improving, despite ngt falling out, but his exact clinical state is difficult to assess due to baseline mental status. Plan: -Repeat x-ray of the abdomen today. If improved, consider trial of clears. If not improved, pt may require diagnostic laparoscopy. -Continue NPO/IVF for now. -SC heparin. Monitor platelets. -Protonix IV for GI ppx. -Continue home meds, converted to IV. Will change to po when diet is advanced. Core Measures/Miscellaneous Venous Thromboembolism VTE Risk Factors: Immobility, paresis VTE Contraindications: No Contraindications VTE Diagnosis: No VTE Type: NONE VTE Confirmed by (Test): NONE Beta Dee Dee Is Beta Dee Dee a Home Med? No Antibiotics Is Patient on Antibiotics? No
[2017-01-27 13:13] VITALS: BP 110/80
--- NOTE | 2017-01-27 13:44 | History & Physical Pre-Op ---
General Information and HPI MD Statement: I have seen and personally examined WILLIE HANNON and documented this H&P. The patient is a 21 year old M who presented with a patient stated chief complaint of []. Source of Information: family Exam Limitations: unable to give history, language barrier History of Present Illness: CC: Vomiting HPI: History extremely limited because of language barrier and the patient is not conversant he has MR and microcephaly so the history is gotten in delayed fashion essentially from the father who speaks some Tanzanian. Patient is a 21-year-old with a history of seizures on review last time apparently was a year ago he's on medications for it, but according to the father he was at school on Tuesday no problems than Tuesday didn't want to eat Tuesday started vomiting and today they brought him to the ER because of persistent vomiting on review he's been here previously for UTI and maybe seizure but otherwise father says he has not had any gastrointestinal problems no prior abdominal surgery he does apparently "eat a lot" and could possibly have ingested a small toy. NG tube has been placed there is no reports of fevers sweats bleeding per rectum apparently normally moves his bowels every day. The PFSH and ROS were reviewed are unobtainable or what was documented in the chart. Family history no similar illnesses in the family otherwise unknown past surgical history no prior abdominal surgery Allergies/Medications Allergies: Coded Allergies: No Known Allergies (12/12/16) Home Med list Albuterol Sulfate (Proair Hfa) 90 MCG HFA.AER.AD 2 PUF INH PRN ASTHMA ( Reported) Ammonium Lactate 12 % LOTION 1 CELESTE TOP DAILY SKIN (Reported) Divalproex Sodium (Divalproex Sodium ER) 500 MG TAB.ER.24H 1 TAB PO TID SEIZURES (Reported) Levetiracetam 500 MG TABLET 2 TAB PO BID SEIZURES (Reported) Oxcarbazepine 300 MG TABLET 2 TAB PO BID SEIZURES (Reported) Past History Medical History Neurological: seizure EENT: NONE Cardiovascular: NONE Respiratory: NONE Gastrointestinal: NONE Hepatic: NONE Renal: NONE Musculoskeletal: NONE Psychiatric: NONE Endocrine: NONE Blood Disorders: NONE Cancer(s): NONE SENIOR PRODUCT DEVELOPMENT SCIENTIST/Reproductive: NONE Other Medical Hx: MACROCEPHALY, MR Isolation History: Standard Surgical History Pertinent Surgical History: lower extremity surgeries Past Family/Social History Psychosocial History Where Do You Live? Home Smoking Status: Never Smoked Review of Systems Review of Systems: Unobtainable or as stated above Exam & Diagnostic Data Last 24 Hrs of Vital Signs/I&O Vital Signs Blood pressure 122/82 temperature 98.9 heart rate 110 respirations 20 Date Time Temp Pulse Resp B/P B/P Pulse O2 O2 Flow FiO2 Intake & Output 0 0 Intake Total Drainage Physical Exam: Constitutional: pleasant, no acute distress, not conversant Eyes: sclera anicteric ENMT: ears and nose atraumatic, moist mucous membranes, poor dentition, no lip lesions Neck: Supple, trachea is midline, no cervical or supraclavicular adenopathy and no palpable thyromegaly Cardiovascular: S1, S2, no murmurs, no peripheral edema Respiratory: clear to auscultation with normal respiratory effort and no intercostal retractions GI: abdomen soft, nontender, slightly distended, no palpable hepatosplenomegaly Extremities / lymphatics: symmetrically warm, free range of motion no peripheral edema, no cervical, supraclavicular, axillary, or inguinal adenopathy Musculoskeletal: no digital cyanosis, good muscle strength and tone obvious atrophy in all 4 extremities, motor grossly 5 out of 5 throughout Skin: no jaundice, no rashes warm, nondiaphoretic, no areas of erythema or induration Psychiatric: Limited as mentioned he's awake not lethargic his parents can interpret his mannerisms Last 24 Hrs of Labs/Lc: Laboratory Tests Assessment/Plan Assessment/Plan: Admission labs reflect dehydration's. Creatinine is 30 however 1.1 his hemoglobin is 14.7 with blood cell count is still normal there is a bandemia. I reviewed the CT scan on PACS myself which shows mostly dilated stomach and small bowel it's difficult to make out the transition point but it appears to be distal, there is an appearance of a small uninflamed retrocecal appendix the radiologist read as the appendix is normal. Impression is small bowel obstruction but no prior surgeries, Hx zhu but possibly an unusual meal high in fiber or chewy food, or even straining. In the meantime will treat in routine nonoperative fashion with bowel rest, NG tube for decompression, maintenance IV fluids and for the GI losses, monitor uo, electrolytes, vital signs, serial exams, labs, abdominal x-rays. Presently there are no peritoneal signs, if situation plateaus or worsens, especially if abdominal pain worsens in next 6-12 hours, might need urgent surgical intervention in the interest of bowel viability, but as I explained, most of the time it is not needed. Note the bandemia but no elev Gr, no fever, hold offon Abx. As Ranked By This Provider Problem List: 1. Small bowel obstruction
--- NOTE | 2017-01-27 13:49 | PN- General Surgery ---
Subjective Subjective: Follow-up for small bowel obstruction, mother is at the bedside, no reports of vomiting or bowel movement, no issues overnight, abdominal x-ray was ordered Objective Vital Signs and I&Os I reviewed Vital Signs Date Time Temp Pulse Resp B/P B/P Pulse O2 O2 Flow FiO2 Mean Ox Delivery Rate 01/27 1313 98.1 71 20 110/80 97 Room Air 01/27 0634 98.7 70 20 112/66 96 Room Air 01/26 2223 98.9 83 20 108/60 96 Room Air 01/26 1426 98.1 88 20 108/64 98 Room Air I reviewed Intake & Output 01/27 1600 01/27 0800 01/27 0000 01/26 1600 01/26 0800 01/26 0000 Intake Total 800 527 345 7931 800 Output Total 100 200 0 10 Balance 800 011 056 8949 790 Intake, IV 800 742 782 0165 800 Intake, Oral 0 Number 0 0 Bowel Movements Output, 100 200 0 10 Gastric Drainage Patient 99 lb 0.01 oz Weight Physical Exam: Constitutional: no acute distress no pain Eyes: sclera anicteric ENMT: moist mucous membranes Cardiovascular: S1-S2 no murmurs no peripheral edema Respiratory: clear to auscultation with normal respiratory effort and no intercostal retractions GI: abdomen softer nontender still slightly distended Extremities / lymphatics: free range of motion no peripheral edema Skin: no jaundice no rashes warm, nondiaphoretic Psychiatric: no change Current Medications: I reviewed Current Medications Sig/Sarina Start time Last Medication Dose Route Stop Time Status Admin Albuterol Sulfate 2 PUF EVERY 4 HRS/AWAKE .. 01/24 2145 AC INH Heparin Sodium 5,000 UNIT Q8 01/24 2200 AC 01/27 (Porcine) SC 0532 Levetiracetam 1,000 MG Q12 01/24 2200 AC 01/27 N/A 1 UNIT IV 0938 Ondansetron HCl 4 MG Q6P PRN 01/24 2200 AC IV Oxcarbazepine 600 MG BID 01/24 2200 AC 01/26 PO 1017 Pantoprazole Sodium 40 MG DAILY 01/24 2154 AC 01/27 IV 1015 Patient Medication 1 ED .STK-MED ONE 01/26 1405 DC Teaching ED 01/26 1406 Potassium Chloride 20 MEQ Q10H 01/26 0930 01/26 Dextrose/Sodium 1,000 ML IV 2146 Chloride Valproate Sodium 500 MG Q8 01/24 2200 AC 01/27 Sodium Chloride 100 ML IV 0534 Results Last 48 Hours of Labs: I reviewed Laboratory Tests 01/27 01/26 0654 0740 Chemistry Sodium (137 - 145 mmol/L) 137 136 L Potassium (3.5 - 5.1 mmol/L) 4.0 4.0 Chloride (98 - 107 mmol/L) 103 105 Carbon Dioxide (22 - 30 mmol/L) 23 23 Anion Gap (5 - 16) 11 8 BUN (9 - 20 mg/dL) 8 L 11 Creatinine (0.7 - 1.2 mg/dL) 0.6 L 0.6 L Estimated GFR (>60 ml/min) > 60 > 60 BUN/Creatinine Ratio (7 - 25 %) 13.3 18.3 Hematology CBC w Diff NO MAN DIFF REQ NO MAN DIFF REQ WBC (4.8 - 10.8 /CUMM) 3.7 L 3.3 L RBC (4.70 - 6.10 /CUMM) 3.47 L 3.37 L Hgb (14.0 - 18.0 G/DL) 10.6 L 10.2 L Hct (42 - 52 %) 32.4 L 31.1 L MCV (80.0 - 94.0 FL) 93.3 92.2 MCH (27.0 - 31.0 PG) 30.7 30.3 RDW (11.5 - 14.5 %) 13.6 13.4 Plt Count (130 - 400 /CUMM) 93 L 87 L MPV (7.4 - 10.4 FL) 9.3 9.8 Gran % (42.2 - 75.2 %) 50.2 42.4 Lymphocytes % (20.5 - 51.1 %) 35.9 40.0 Monocytes % (1.7 - 9.3 %) 12.7 H 16.6 H Eosinophils % (0 - 5 %) 0.9 0.7 Basophils % (0.0 - 2.0 %) 0.3 0.3 Absolute Granulocytes (1.4 - 6.5 /CUMM) 1.8 1.4 Absolute Lymphocytes (1.2 - 3.4 /CUMM) 1.3 1.3 Absolute Monocytes (0.10 - 0.60 /CUMM) 0.5 0.6 Absolute Eosinophils (0.0 - 0.7 /CUMM) 0 0 Absolute Basophils (0.0 - 0.2 /CUMM) 0 0 PUBS MCHC (33.0 - 37.0 G/DL) 32.9 L 32.9 L Assessment/Plan Assessment/Plan I reviewed today's multiview on PACS myself shows persistent if not worsened small bowel dilatation Impression is persistent small bowel obstruction etiology unclear he's otherwise stable with no signs of worsening infection at this point since he's plateaued before he worsens I recommend surgical intervention exploration possible bowel resection I explained to this this to him to his mother at the bedside through an sign language interpreter risks include bleeding infection and anastomotic leak sepsis could be life-threatening I also explained why I would not recommend laparoscopic approach initially because of the amount of distention and his thin abdominal wall. Apparently is chronic seizure disorder is under control there may be some risks with anesthesia perioperatively but I feel in the interest of bowel viability which can be life-threatening we need to intervene. Problem List: 1. Small bowel obstruction Core Measures/Miscellaneous Venous Thromboembolism VTE Risk Factors: Immobility, paresis VTE Contraindications: No Contraindications VTE Diagnosis: No VTE Type: NONE VTE Confirmed by (Test): NONE Beta Dee Dee Is Beta Dee Dee a Home Med? No Antibiotics Is Patient on Antibiotics? No
--- NOTE | 2017-01-27 13:51 | RADIOLOGY REPORT ---
EXAMINATION: XR ABDOMEN CLINICAL INDICATION: 21-year-old male, clinically known to have small-bowel obstruction. The enteric tube fell out. For follow up. COMPARISON: CT of the abdomen and pelvis done on 01/24/2017 and most recent prior radiograph of the abdomen done on 01/26/2017. TECHNIQUE: Frontal view of the chest, supine and upright frontal view of the abdomen and pelvis. Total of 3 images. FINDINGS: Persistent prominent small-bowel loops are identified within the central abdomen showing a few small air-fluid levels within the central abdomen and upper part of the pelvis. There is fecal matter as well as intraluminal gas identified within the large bowel. The rectum is not optimally included within the field of view. There is no free intraperitoneal air visualized. Both lung call are symmetrically expanded and grossly appear unremarkable. The enteric tube is not visualized. IMPRESSION: Persistent prominent small-bowel loops are noted within the central abdomen with few air-fluid levels. No radiographic evidence of superimposed complications. The enteric tube is not visualized.
--- NOTE | 2017-01-27 20:04 | NUR ---
LATE ENTRY: PATIENT ARRIVED VIA STRETCHER FROM PACU AT APPROX 1830 ACCOMPANIED BY DISTRIBUTION; PATIENT ALERT/NON-VERBAL; 2LNC; IBRAHIM PLACED IN OR-CLEAR/YELLOW URINE; NGT PLACED IN OR, TO LWS; FAMILY PRESENT AT THE BEDSIDE; BILATERAL WRIST RESTRAINTS IN PLACE PER ORDER; IVF HUNG PER ORDER IN PACU' PATIENT ORIENTED TO ROOM; CALL RUSH IN REACH;
--- NOTE | 2017-01-27 20:49 | PN- General Surgery ---
Subjective Subjective: The patient was seen this evening postoperatively. He is nonverbal but appears to be comfortable at the current time. Per nursing there were no significant findings throughout the postoperative period. Objective Vital Signs and I&Os Vital Signs Date Time Temp Pulse Resp B/P B/P Pulse O2 O2 Flow FiO2 Mean Ox Delivery Rate 01/27 1830 Nasal 2.0L Cannula 01/27 1313 98.1 71 20 110/80 97 Room Air 01/27 0634 98.7 70 20 112/66 96 Room Air 01/26 2223 98.9 83 20 108/60 96 Room Air Intake & Output 01/27 1600 01/27 0800 01/27 0000 01/26 1600 01/26 0800 01/26 0000 Intake Total 920 800 130 816 6240 800 Output Total 100 200 0 10 Balance 920 800 412 253 6647 790 Intake, IV 920 800 744 146 3026 800 Intake, Oral 0 0 Number 0 0 Bowel Movements Output, 100 200 0 10 Gastric Drainage Patient 99 lb 0.01 oz Weight Physical Exam: Gen.: Alert, nonverbal, and in no obvious distress. Skin: Warm and dry Abdomen: Soft, mildly distended, appropriate incisional tenderness, bowel sounds scant. Surgical dressing is blood-tinged but otherwise intact. Extremities: Bilateral lower extremities were warm without calf tenderness. Assessment/Plan Assessment/Plan Assessment: 21-year-old male status post exploratory laparotomy for small bowel obstruction. Postoperatively the patient is progressing as expected and appears to be comfortable at the current time. Plan: Continue nothing by mouth, hydration, and NG tube decompression Will schedule light pain medication due to the fact that patient cannot verbalize discomfort. GI and DVT prophylaxis Strict I's and O's Gail medical restraints due to patient attempting to pull out lines and tubes. GI and DVT prophylaxis Follow-up morning laboratory studies 2 doses of postoperative prophylactic antibiotics Continue home medications via NG tube Core Measures/Miscellaneous Venous Thromboembolism VTE Risk Factors: Immobility, paresis VTE Contraindications: No Contraindications VTE Diagnosis: No VTE Type: NONE VTE Confirmed by (Test): NONE Beta Dee Dee Is Beta Dee Dee a Home Med? No Antibiotics Is Patient on Antibiotics? Yes If Yes: prophylaxis
[2017-01-27 23:31] VITALS: BP 112/76
--- NOTE | 2017-01-28 00:21 | NUR ---
PT'S NG TUBE NOTED TO HAVE BRIGHT RED BLOOD IN TUBING. PAGE ANJEL SURGICAL PA. PER PA "IT'S OKAY". WILL MONITOR.
--- NOTE | 2017-01-28 04:25 | NUR ---
AT 0410 PT PULLED OUT NG TUBE. RESTRAINTS WERE STILL TIED BUT PT WAS ABLE TO LEAN OVER TO HAND TO PULL OUT NG TUBE. SURGICAL PA ANJEL MADE AWARE, AND PER PA LEAVE NG TUBE OUT.
[2017-01-28 06:30] VITALS: BP 104/64
--- NOTE | 2017-01-28 08:00 | NUR ---
PT IN BILATERAL UPPER RESTRAINTS FOR PULLING AT LINES. OVERNIGHT, PT REMOVED NGT. PT CURRENTLY TOLERATING NO TUBE AND NO ORDERS TO REPLACE. DISCUSSED WITH SURGICAL PA, WILL REMOVE IBRAHIM CATHETER TODAY. ALSO DISCUSSED WITH PARENTS. PARENTS TO NOT FEEL THAT PT WILL PULL AT HIS IV LINES. BILATERAL RESTRAINTS REMOVED. PT MAKING NO ATTEMPTS AT THIS TIME TO PULL OUT LINES. BED ALARM IN PLACE. FAMILY AT BEDSIDE. WILL MONITOR.
[2017-01-28 08:03] LABS: ABSOLUTE BASOPHIL COUNT 0 /CUMM (0.0-0.2); ABSOLUTE EOSINOPHIL COUNT 0 /CUMM (0.0-0.7); ABSOLUTE GRANULOCYTE CT 3.2 /CUMM (1.4-6.5); ABSOLUTE LYMPH COUNT 1.4 /CUMM (1.2-3.4); ABSOLUTE MONOCYTE COUNT 0.7 /CUMM (0.10-0.60); BASOPHIL % 0.1 % (0.0-2.0); EOSINOPHIL % 0.1 % (0-5); GRANULOCYTE % 60.1 % (42.2-75.2); HEMATOCRIT 33.6 % (42-52); MEAN CORPUSCULAR HGB 30.8 PG (27.0-31.0); MEAN CORPUSCULAR HGB CONC 33.3 G/DL (33.0-37.0); MEAN CORPUSCULAR VOLUME 92.5 FL (80.0-94.0); MEAN PLATELET VOLUME 9.3 FL (7.4-10.4); PLATELET COUNT 114 /CUMM (130-400); RBC DISTRIBUTION WIDTH 13.6 % (11.5-14.5); RED BLOOD CELL CT 3.63 /CUMM (4.70-6.10); WHITE BLOOD CELL COUNT 5.4 /CUMM (4.8-10.8)
--- NOTE | 2017-01-28 10:09 | PN- General Surgery ---
Subjective Subjective: Nonverbal at baseline. IV tylenol ordered around the clock. Also 1mg iv morphine ordered every 3 hours around the clock. He pulled out his ng tube overnight despite being restrained. No flatus or bm recognized yet. He apparently is independant ambulating at baseline. Objective Vital Signs and I&Os Vital Signs Date Time Temp Pulse Resp B/P B/P Pulse O2 O2 Flow FiO2 Mean Ox Delivery Rate 01/28 0630 97.9 81 20 104/64 96 Nasal Cannula 01/27 2351 97 Room Air 01/27 2331 99.9 71 20 112/76 99 Nasal 2.0L Cannula 01/27 1830 Nasal 2.0L Cannula 01/27 1313 98.1 71 20 110/80 97 Room Air Intake & Output 01/28 1600 01/28 0800 01/28 0000 01/27 1600 01/27 0800 01/27 0000 Intake Total 720 400 920 800 760 Output Total 1150 1700 100 Balance -430 -1300 920 800 660 Intake, IV 720 400 920 800 760 Intake, Oral 0 Number 0 0 Bowel Movements Output, 150 100 Gastric Drainage Output, Urine 1000 1700 Physical Exam: General - alert and awake. appears comfortable. Lungs - clear bilaterally. no w/r/r. Cardiac - s1s2. reg. Abdomen - soft. dressing c/d/i. no bowel sounds appreciated. - galan draining clear, yellow urine. Extremities - warm bilaterally. no c/c/e. calves soft and nontender b/l. Assessment/Plan Assessment/Plan This 21-year-old male with hx MR, macrocephaly, seizures, asthma, is POD#1 s/p ex lap for sbo, who pulled out ng tube overnight despite restraints currently npo. head of bed elevated iv tylenol / morphine ordered around the clock d/c galan. will require diaper PT eval to assess and ambulate hep sc - dvt ppx protonix - gi ppx f/u labs monitor for signs of bowel function will d/w Core Measures/Miscellaneous Venous Thromboembolism VTE Risk Factors: Immobility, paresis VTE Contraindications: No Contraindications VTE Diagnosis: No VTE Type: NONE VTE Confirmed by (Test): NONE Beta Dee Dee Is Beta Dee Dee a Home Med? No Antibiotics Is Patient on Antibiotics? Yes If Yes: prophylaxis
[2017-01-28 14:13] VITALS: BP 110/60
[2017-01-28 20:16] VITALS: BP 116/80
--- NOTE | 2017-01-28 22:00 | NUR ---
FAMILY REPORTED PT ABD HARD AND DISTENDED. NOTIFIED SURGICAL PA.
[2017-01-28 22:25] VITALS: BP 90/64
--- NOTE | 2017-01-28 22:30 | NUR ---
PT VOMIT X 1, SMALL AMOUNT. SURGICAL PA SHEMAR RODRIGUEZ AT BEDSIDE. CHANGED DIET TO NPO AND STARTED IV FLUIDS. WILL CONTINUE TO MONITOR THIS SHIFT.
--- NOTE | 2017-01-29 06:20 | NUR ---
PT WAS HOT TO THE TOUCH. ORAL TEMP 103.1, NOTIFIED COLEMAN TANNER. IV TYLENOL ORDERED.
--- NOTE | 2017-01-29 06:36 | NUR ---
PT TEMP 103.1, NOTIFIED COLEMAN TANNER.
[2017-01-29 06:55] VITALS: BP 120/82
[2017-01-29 07:40] VITALS: BP 118/80
--- NOTE | 2017-01-29 07:40 | PN- General Surgery ---
See Addendum Subjective Subjective: POD#1 S/P EX LAP FOR BOWEL OBSTRUCTION RAPID RESPONSE CALLED FOR TACHYCARDIA TO 150BPM GIVEN IV OFIRMEV JUST PRIOR FRO TEMP TO 103 DIFFICULTY TO ASSES MENTAL STATUS DUE TO MEDICAL HISTORY BUT MOM AT BEDSIDE STATES IS "NOT HIS NORMAL SELF" Objective Vital Signs and I&Os Vital Signs Date Time Temp Pulse Resp B/P B/P Pulse O2 O2 Flow FiO2 Mean Ox Delivery Rate 01/29 639 103.1 01/285 97.8 96 20 90/64 95 Room Air 01/29 2016 97.7 98 20 116/80 95 Room Air 01/28 1413 98.3 93 20 110/60 95 Room Air Intake & Output 01/29 0800 01/29 0000 01/28 1600 01/28 0800 01/28 0000 01/27 1600 Intake Total 360 900 720 400 920 Output Total 450 1150 1700 Balance 360 450 -430 -1300 920 Intake, IV 300 800 720 400 920 Intake, Oral 60 100 0 Number 0 Bowel Movements Output, 150 Gastric Drainage Output, Urine 450 1000 1700 Physical Exam: CV: RRR, TACHY TO 150BPM LUNGS: COARSE BS THROUGHOUT ABD: MODERATLEY DISTENDED NO GUARDING TO PALP DRSG DRY EXT: WARM, DP PULSES INTACT BILAT Assessment/Plan Assessment/Plan FEBRILE, TACHYCARDIC PLAN PER MEDICAL RR TEAM BLOOD CX'S,AM LABS STAT EKG,CXR,ABD XRAY IV TYLENOL WILL MONITOR CLOSELY Core Measures/Miscellaneous Venous Thromboembolism VTE Risk Factors: Immobility, paresis VTE Contraindications: No Contraindications VTE Diagnosis: No VTE Type: NONE VTE Confirmed by (Test): NONE Beta Dee Dee Is Beta Dee Dee a Home Med? No Antibiotics Is Patient on Antibiotics? Yes If Yes: prophylaxis
--- NOTE | 2017-01-29 08:09 | NUR ---
B/P 120/82, HR 150, O2SAT 80-84% RA, CONGESTED. CALLED RAPID RESPONSE @ 0655. EKG, BC, CXR, ABD X RAY ORDERED. PT PLACED ON 3L NC, O2SAT 93%. GAVE REPORT TO KATHY Rogers RN.
[2017-01-29 08:35] LABS: ABSOLUTE BASOPHIL COUNT 0 /CUMM (0.0-0.2); ABSOLUTE EOSINOPHIL COUNT 0 /CUMM (0.0-0.7); ABSOLUTE GRANULOCYTE CT 2.5 /CUMM (1.4-6.5); ABSOLUTE LYMPH COUNT 0.7 /CUMM (1.2-3.4); ABSOLUTE MONOCYTE COUNT 0.5 /CUMM (0.10-0.60); BASOPHIL % 0.4 % (0.0-2.0); EOSINOPHIL % 0.2 % (0-5); HEMATOCRIT 35.8 % (42-52); MEAN CORPUSCULAR HGB 30.7 PG (27.0-31.0); MEAN CORPUSCULAR HGB CONC 32.9 G/DL (33.0-37.0); MEAN CORPUSCULAR VOLUME 93.3 FL (80.0-94.0); MEAN PLATELET VOLUME 9.4 FL (7.4-10.4); PLATELET COUNT 128 /CUMM (130-400); RBC DISTRIBUTION WIDTH 14.1 % (11.5-14.5); RED BLOOD CELL CT 3.84 /CUMM (4.70-6.10); WHITE BLOOD CELL COUNT 3.8 /CUMM (4.8-10.8)
--- NOTE | 2017-01-29 09:13 | RADIOLOGY REPORT ---
EXAMINATION: XR PORTABLE ABDOMEN CLINICAL INFORMATION: Fever and tachycardia. Abdominal distention. COMPARISON: Abdomen radiographs 01/27/2017 and 01/26/2017. TECHNIQUE: Portable AP view of the abdomen is performed at 0817 hours. FINDINGS: There is massive gaseous dilatation of the stomach. There is gas present in the small bowel and colon. The mid jejunal small bowel segments of mildly dilated, slightly decreased from prior exam. The ileal loops appear normal in caliber. Right: Distention is within normal caliber. There is only scant gas in the descending colon. Since prior study, there are vertically oriented skin mary anne mid to lower abdomen. Results discussed with provider COLEMAN Temple at 09:09 hrs. IMPRESSION: 1. Massive gaseous dilatation of the stomach. Recommend NG tube. 2. Jejunal dilatation decreased from 01/27/2017.
--- NOTE | 2017-01-29 10:47 | NUR ---
PHYSICAL THERAPY: Pt HAD RR THIS AM WITH INCREASED HR 150BPM. CANCEL PT FOR TODAY. WILL F/U WITH Pt APPROPRIATE.
--- NOTE | 2017-01-29 12:17 | RADIOLOGY REPORT ---
EXAMINATION: XR CHEST XR ABDOMEN CLINICAL INFORMATION: 21-year-old male with tachypnea. Evaluate for aspiration. Abdominal distention. Evaluate NG tube placement. COMPARISON: CT of abdomen pelvis from 01/24/2017. TECHNIQUE: Chest, AP view Abdomen, AP view FINDINGS: CHEST: Lungs are hypoinflated resulting in crowding of bronchovascular structures within the bases. There are hazy, streaky opacities in the left lower lung zone. There appears to be a region of discoid atelectasis in the right lower lung. Cardiac silhouette is normal in size. The hilar contours are normal. No acute skeletal findings in the chest. ABDOMEN: Midline abdominal wall skin mary anne from recent surgery. The tip of the NG tube is in satisfactory position, located within the proximal stomach. The small bowel remains dilated and measures up to approximately 3.5 cm diameter. Large amount stool is present within the colon. There is a postoperative pneumoperitoneum as manifest by free air beneath the right diaphragm. There are no acute skeletal findings. 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 IMPRESSION: 1. Lungs are hypoinflated resulting in crowding of bronchovascular structures in the bases. There are linear, hazy and streaky opacities of atelectasis and/or early infiltrates in the bases. Aspiration-induced atelectasis and/or early pneumonitis is considered. Recommend follow-up. 2. Postoperative pneumoperitoneum and persistent small bowel distention.
[2017-01-29 13:00] VITALS: BP 112/74
[2017-01-29 14:33] VITALS: BP 116/70
--- NOTE | 2017-01-29 15:44 | NUR ---
0930- XRAY ABD SHOWS LARGE DISTENTION TO STOMACH. SURG PA MARSHA INSERTED NGT TO L NARE ON LWS. WITHIN 5 MINUTES, 700 ML OF BROWN/MONTANO FLUID DRAINED FROM NGT. XRAY TO CONFIRM PLACEMENT PENDING. CXR RESULTS ALSO PENDING. VSS.
[2017-01-29 22:29] VITALS: BP 108/76
--- NOTE | 2017-01-30 06:22 | NUR ---
PT PASSED SECOND BM ALONG WITH A FLEXIBLE PLASTIC ITEM APPROX 1 INCH SQUARE. LOOKS LIKE A PLASTIC ICE CUBE.
[2017-01-30 07:21] VITALS: BP 118/80
--- NOTE | 2017-01-30 07:33 | PN- General Surgery ---
See Addendum Subjective Subjective: The patient was seen this morning postoperatively day #3. He remains nonverbal as is his baseline but appears relatively comfortable. Per nursing staff the patient had 2 bowel movements overnight and with the second bowel movement they found a small plastic cube mixed in with the stool. Objective Vital Signs and I&Os Vital Signs Date Time Temp Pulse Resp B/P B/P Pulse O2 O2 Flow FiO2 Mean Ox Delivery Rate 01/30 0721 98.2 105 20 118/80 96 Room Air 01/29 2229 97.5 100 20 108/76 93 01/29 1927 98.4 01/29 1433 97.7 100 20 116/70 98 Room Air 01/29 1300 98.3 102 20 112/74 95 Room Air 01/29 0800 95 01/29 0740 99.9 01/29 0740 99.9 105 20 118/80 99 Nasal 3.0L Cannula Intake & Output 01/30 0800 /14 0000 01/29 1600 01/29 0800 01/29 0000 /12 1600 Intake Total 800 1919 583 0666 360 900 Output Total 498 433 2502 450 Balance 600 460 -490 1000 360 450 Intake, IV 800 4025 037 3256 300 800 Intake, Oral 60 100 Intake, Other 60 60 Number 2 Bowel Movements Output, 447 623 6041 Gastric Drainage Output, Urine 250 450 Physical Exam: Gen.: Alert, nonverbal, and in no obvious distress Skin: Warm and dry Abdomen: Softly distended, appropriate postoperative tenderness, bowel sounds positive. Surgical incision was blood tinged but otherwise intact. Extremities: Bilateral lower extremities were warm without without calf tenderness. Assessment/Plan Assessment/Plan Assessments: 21-year-old male status post exploratory laparotomy for small bowel obstruction postoperative day #3. The patient has made slow progression and some signs of bowel function have returned. The patient did pass a foreign body with this last bowel movements which could have been the cause of his obstruction. Plan: Continue nothing by mouth and NG tube decompression until increased bowel function Renew wrist restraints as the patient has attempted to pull out his lines and tubes. Scheduled IV Tylenol for pain GI and DVT prophylaxis Follow-up morning laboratory studies Strict I's and O's Core Measures/Miscellaneous Venous Thromboembolism VTE Risk Factors: Immobility, paresis VTE Contraindications: No Contraindications VTE Diagnosis: No VTE Type: NONE VTE Confirmed by (Test): NONE Beta Dee Dee Is Beta Dee Dee a Home Med? No Antibiotics Is Patient on Antibiotics? No
--- NOTE | 2017-01-30 11:37 | Operative Report ---
Operative/Inv Procedure Report Surgery Date: 01/27/17 Name of Procedure: Exploratory laparotomy lysis of adhesions Pre-Operative Diagnosis: Small bowel obstruction Post-Operative Diagnosis: Same Estimated Blood Loss: scant Surgeon/Mechanical System Technician: CARL MANUEL,COLEMAN David Anesthesia: general endotracheal tube Operative/Procedure Note Note: Patient positioned supine and after induction of general anesthesia and IV antibiotics and timeouts his abdomen was clipped prepped and draped in usual sterile fashion, this was a distal obstruction so we aimed an incision infraumbilically midline vertical injected local anesthetic to made the incision with a 15 blade but the width of your hand, we completed the incision to the abdominal wall sharply there was copious serous not particularly sanguinous fluid no odor no free air, we ran the bowel numerous times feeling for a foreign body there were some leaves of peritoneum at the terminal ileum also at the meso appendix which created a mild twisting and I lysed these "adhesions" to straighten it out but at this level the bowel is decompressed that is why we ran it numerous times, also there were no masses or obvious blockages at the ileocecal valve, in the mid small bowel there was definitely an area of bowel wall thickening, about 20 cm long, were the antimesenteric border was a little hemorrhagic but there was no ecchymoses no creases no mesenteric twisting there was some palpable mesenteric lymph nodes the colon was full of stool we checked the NG tube position and then closed the midline with continuous 0 Maxon a few interrupted Vicryl subdermally and then mary anne for skin followed by an island dressing. EBL minimal lap and sponge counts correct wound expectancy clean IV fluids crystalloid complications none patient tolerated the procedure well was extubated and returned to recovery room in satisfactory condition.
--- NOTE | 2017-01-30 12:42 | NUR ---
1200- DR. HENRY AT BEDSIDE TO ASSESS PT PRIOR TO NGT REMOVAL. PT WITH POSITIVE BOWEL SOUNDS. 100 ML OUT OF NGT SINCE 0700. ABDOMEN MINIMALLY DISTENDED. PER DR. HYLTON, REMOVE NGT AND START CLEAR LIQUID DIET. NGT REMOVED FROM L NARE. BILATERAL SOFT WRIST RESTRAINTS REMOVED.
[2017-01-30 14:16] VITALS: BP 122/86
[2017-01-30 21:55] VITALS: BP 110/86
--- NOTE | 2017-01-30 22:23 | NUR ---
AT THIS TIME PT ABDOMEN NOTED TO BE FIRM AND DISTENDED, VSS, PER FLACC SCORE PT IN NO PAIN, CALL PLACED TO SURGICAL PA ANJEL WHO STATED, "IT HAS BEEN LIKE THAT, JUST SLOW DOWN THE LIQUIDS", WILL CONT TO MONITOR
[2017-01-31 07:30] VITALS: BP 100/80
--- NOTE | 2017-01-31 07:50 | PN- General Surgery ---
See Addendum Subjective Subjective: Diet was regressed and ngt placed over the weekend due to emesis. Pt subsequently had 2 BM's with production of foreign body (plastic ice cube). His NGT was removed yesterday and he was started on clear liquids, which he seems to be tolerating. He remains nonverbal as per baseline, but per RN, FLACC pain scores have been 0. There has been borderline tachycardia. Objective Vital Signs and I&Os Vital Signs Date Time Temp Pulse Resp B/P B/P Pulse O2 O2 Flow FiO2 Mean Ox Delivery Rate 01/31 0730 97.9 94 20 100/80 95 Room Air 01/30 2155 97.6 91 18 110/86 95 01/30 1416 99.1 100 18 122/86 95 Room Air Intake & Output 01/31 1600 01/31 0800 01/31 0000 01/30 1600 01/30 0800 01/30 0000 Intake Total 100 650 144 215 0785 Output Total 500 200 600 Balance 100 150 650 600 460 Intake, IV 100 906 288 6723 Intake, Oral 650 300 Intake, Other 60 Number 2 Bowel Movements Output, 200 350 Gastric Drainage Output, Urine 500 250 Physical Exam: Gen.: Patient is resting, but easily arousable by voice. He displays no acute distress or agitation. There is no wincing during exam. Cardiac: Regular, borderline tachycardia. Pulmonary: Lungs are clear to auscultation and bilateral anterior and posterior lung call. Good aeration is noted throughout. No crackles, wheezes, or rhonchi appreciated. Abdomen: Remains soft, but moderately distended. Midline dressing contains a small amount of old drainage. It was left in place. There doesn't appear to be significant tenderness, but this is difficult to assess. Hypoactive BS were heard. Ext: No significant LE edema appreciated bilaterally. Assessment/Plan Assessment/Plan Patient is a 21-year-old male, who is now postoperative day #4 status post exploratory laparotomy for small bowel obstruction. Intraoperative evaluation was negative for source, however patient has since had a bowel movement with release of a plastic ice cube. He remains somewhat distended but appears comfortable. Plan: -Continue clear liquids for now. -Obtain multiview x-ray of the abdomen for further assessment of bowel loops. -Follow-up morning labs. -Monitor heart rate. If it continues to climb, consider administration of Toradol for presumed discomfort. -Sterile dressing was left in place to protect the incision. Will change later today or tomorrow. -Protonix for GI prophylaxis. -Subcutaneous heparin and Alps for DVT prophylaxis. -Consider mobilization? -Will discuss with attending. Core Measures/Miscellaneous Venous Thromboembolism VTE Risk Factors: Immobility, paresis VTE Contraindications: No Contraindications VTE Diagnosis: No VTE Type: NONE VTE Confirmed by (Test): NONE Beta Dee Dee Is Beta Dee Dee a Home Med? No Antibiotics Is Patient on Antibiotics? No
[2017-01-31 08:31] LABS: ABSOLUTE BASOPHIL COUNT 0 /CUMM (0.0-0.2); ABSOLUTE EOSINOPHIL COUNT 0 /CUMM (0.0-0.7); ABSOLUTE GRANULOCYTE CT 2.8 /CUMM (1.4-6.5); ABSOLUTE LYMPH COUNT 1.1 /CUMM (1.2-3.4); BASOPHIL % 0.3 % (0.0-2.0); EOSINOPHIL % 0.7 % (0-5); GRANULOCYTE % 55.7 % (42.2-75.2); HEMATOCRIT 35.4 % (42-52); MEAN CORPUSCULAR HGB 30.8 PG (27.0-31.0); MEAN CORPUSCULAR HGB CONC 33.3 G/DL (33.0-37.0); MEAN CORPUSCULAR VOLUME 92.5 FL (80.0-94.0); MEAN PLATELET VOLUME 8.8 FL (7.4-10.4); PLATELET COUNT 141 /CUMM (130-400); RBC DISTRIBUTION WIDTH 13.8 % (11.5-14.5); RED BLOOD CELL CT 3.83 /CUMM (4.70-6.10); WHITE BLOOD CELL COUNT 4.9 /CUMM (4.8-10.8)
--- NOTE | 2017-01-31 10:51 | RADIOLOGY REPORT ---
EXAMINATION: XR ABDOMEN MULTIPLE VIEWS CLINICAL INDICATION: Abdominal distention status post laparotomy for small bowel obstruction. Positive bowel movement. Evaluate for ileus. COMPARISON: KUB dated 01/29/2017 and 01/27/2017. TECHNIQUE: Supine and upright views of the abdomen. FINDINGS: Again seen are multiple abnormally dilated loops of small bowel and large bowel in the abdomen with scattered air-fluid levels on the upright view. When compared to the prior exam, findings are very similar. An air-fluid level in the left upper quadrant likely reflects air within a gas distended gastric fundus rather than free air. No free air is seen under the right hemidiaphragm. Midline mary anne are in place from recent surgical incision. Lung bases are unremarkable to the extent seen. IMPRESSION: No interval change in abnormal bowel distention compared to prior exam. Findings likely represent a ongoing ileus.
[2017-01-31 14:57] VITALS: BP 118/80
[2017-01-31 22:00] VITALS: BP 120/90
[2017-02-01 06:47] VITALS: BP 122/86
--- NOTE | 2017-02-01 08:44 | PN- General Surgery ---
See Addendum Subjective Subjective: Nursing reports +bm yesterday evening. He is tolerating clears. Apparently passing some flatus. No vomiting. Out of bed with assist of 2. xray showed continued ileus yesterday. Objective Vital Signs and I&Os Vital Signs Date Time Temp Pulse Resp B/P B/P Pulse O2 O2 Flow FiO2 Mean Ox Delivery Rate 02/01 0647 98.7 98 20 122/86 96 Room Air 01/31 2200 98.4 85 20 120/90 98 Room Air 01/31 1457 98.4 92 18 118/80 96 Intake & Output 02/01 1600 02/01 0800 02/01 0000 01/31 1600 01/31 0800 01/31 0000 Intake Total 150 440 600 100 650 Output Total 1 500 Balance 150 439 600 100 150 Intake, IV 150 200 200 100 Intake, Oral 240 400 650 Number 1 Bowel Movements Output, Stool 1 Output, Urine 500 Physical Exam: General - alert. appears comfortable. no acute distress. Lungs - clear bilaterally Cardiac - s1s2. slightly tachy 90s-100s Abdomen - distended. dressing c/d/i. Extremities - warm bilaterally. no c/c/e. Assessment/Plan Assessment/Plan Patient is a 21-year-old male, who is POD#5 s/p exploratory laparotomy for small bowel obstruction. Intraoperative evaluation was negative for source, however patient has since had a bowel movement with release of a plastic ice cube. He remains somewhat distended but appears comfortable. Tolerating clears. Passing some flatus and +bm yesterday evening. Remains distended. Toradol prn pain control no labs ordered today hep sc - dvt ppx protonix - gi ppx continue oob/mobilization will d/w Core Measures/Miscellaneous Venous Thromboembolism VTE Risk Factors: Immobility, paresis VTE Contraindications: No Contraindications VTE Diagnosis: No VTE Type: NONE VTE Confirmed by (Test): NONE Beta Dee Dee Is Beta Dee Dee a Home Med? No Antibiotics Is Patient on Antibiotics? No
[2017-02-01 14:02] VITALS: BP 100/60
[2017-02-01 22:26] VITALS: BP 100/60
--- NOTE | 2017-02-01 22:49 | NUR ---
PT IS A AND NON VERBAL PER BASELINE. NO SIGNS OF DISCOMFORT. NOT GRABING AT STOMACH. DRESSING IS CDI. NO S/S OF INFECTION AROUND DRESSING. +BS X4. ABDOMEN SOFT AND NON-TENDER. TO MEDS CRUSHED IN WATER WITHOUT DIFFICULTY. SAFETY MAINTAINED. BED ALARM ON. BED IN LOWEST POSITION. FAMILY AT BEDSIDE.
[2017-02-02 06:50] VITALS: BP 104/80
--- NOTE | 2017-02-02 07:28 | PN- General Surgery ---
Subjective Subjective: No issues reported. Nursing reports 2 bms found in diaper in the last day. Tolerated fulls. Family reports he's passing flatus. Out of bed with assistance. PT indicates home self care dispo. Objective Vital Signs and I&Os Vital Signs Date Time Temp Pulse Resp B/P B/P Pulse O2 O2 Flow FiO2 Mean Ox Delivery Rate 02/02 0650 98.0 88 16 104/80 96 Room Air 02/01 2226 98.0 89 20 100/60 99 02/01 1402 98.5 98 20 100/60 97 Room Air Intake & Output 02/02 0800 02/02 0000 02/01 1600 02/01 0800 02/01 0000 01/31 1600 Intake Total 60 700 150 440 600 Output Total 1 Balance 60 700 150 439 600 Intake, IV 200 150 200 200 Intake, Oral 60 500 240 400 Number 1 1 Bowel Movements Output, Stool 1 Physical Exam: General - alert. appears comfortable. Lungs - clear Cardiac - s1s2. reg. Abdomen - soft. less distended. bowel sounds appreciated. midline incision approximated with mary anne. no erythema or exudates. Extremities - warm bilaterally. no c/c/e. Current Medications: Current Medications Sig/Sarina Start time Last Medication Dose Route Stop Time Status Admin Albuterol Sulfate 2 PUF EVERY 4 HRS/AWAKE .. 01/27 171 AC INH Heparin Sodium 5,000 UNIT Q8 01/27 2200 AC 02/02 (Porcine) SC 0616 Ketorolac 15 MG Q6P PRN 01/30 1230 AC Tromethamine IV Levetiracetam 1,000 MG Q12 01/27 2200 AC 02/01 N/A 1 UNIT IV 2228 Ondansetron HCl 4 MG Q6P PRN 01/27 1715 AC 01/28 IV 2032 Oxcarbazepine 600 MG BID 01/27 220 AC 02/01 PO 2228 Pantoprazole Sodium 40 MG DAILY 01/28 1000 AC 02/01 IV 0946 Valproate Sodium 500 MG Q8 01/27 2200 AC 02/02 Sodium Chloride 100 ML IV 0616 Results Last 48 Hours of Labs: Laboratory Tests 02/02 06 Chemistry Sodium Pending Potassium Pending Chloride Pending Carbon Dioxide Pending Anion Gap Pending BUN Pending Creatinine Pending BUN/Creatinine Ratio Pending Hematology CBC w Diff Pending WBC Pending RBC Pending Hgb Pending Hct Pending MCV Pending MCH Pending RDW Pending Plt Count Pending MPV Pending PUBS MCHC Pending Assessment/Plan Assessment/Plan Patient is a 21-year-old male, who is POD#6 s/p exploratory laparotomy for small bowel obstruction. Intraoperative evaluation was negative for source, however patient has since had a bowel movement with release of a plastic ice cube, improving distension and tolerating fulls Tolerating fulls. +bms. consider advancing diet Toradol prn pain control f/u labs hep sc - dvt ppx protonix - gi ppx continue oob/mobilization d/c planning will d/w Core Measures/Miscellaneous Venous Thromboembolism VTE Risk Factors: Immobility, paresis VTE Contraindications: No Contraindications VTE Diagnosis: No VTE Type: NONE VTE Confirmed by (Test): NONE Beta Dee Dee Is Beta Dee Dee a Home Med? No Antibiotics Is Patient on Antibiotics? No
--- NOTE | 2017-02-02 07:34 | Patient Discharge Instructions ---
Discharge Instructions General Discharge Information You were seen/treated for: Small bowel obstruction You had these procedures: Surgery Date: 01/27/17 Name of Procedure: Exploratory laparotomy lysis of adhesions Watch for these problems: fever>101.3, increased pain, nausea/vomiting, redness/swelling/drainage Call Surgeon to remove: [place] (around post-op day #14) No bath, but you may shower: Yes Other wound care: keep incision clean & dry Diet Continue normal diet: Yes Recommended Diet: Regular Activity Full Activity/No Limits: No Activity Self Limited: Yes Pounds, do NOT lift more than: 10 Acute Coronary Syndrome Inclusion Criteria At DC or during hospital stay patient has or had the following: ACS DIAGNOSIS No Discharge Core Measures Meds if any: Prescribed or Continued at Discharge Meds if any: NOT Prescribed or Continued at Discharge Congestive Heart Failure Inclusion Criteria At DC or during hospital stay patient has or had the following: CHF DIAGNOSIS No Discharge Core Measures Meds if any: Prescribed or Continued at Discharge Meds if any: NOT Prescribed or Continued at Discharge Cerebrovascular accident Inclusion Criteria At DC or during hospital stay patient has or had the following: CVA/TIA Diagnosis No Discharge Core Measures Meds if any: Prescribed or Continued at Discharge Meds if any: NOT Prescribed or Continued at Discharge Venous thromboembolism Inclusion Criteria VTE Diagnosis No VTE Type NONE VTE Confirmed by (Test) NONE Discharge Core Measures - Per Current guidelines, there needs to be overlap - treatment for the first 5 days of Warfarin therapy. - If discharged on Warfarin prior to 5 days of - overlap therapy, the patient will need to be - assessed for post discharge needs including - *Post discharge parental anticoagulation - *Warfarin and/or parental anticoagulation education - *Follow up date to check INR post discharge At least 5 days overlap therapy as Inpatient No Meds if any: Prescribed or Continued at Discharge Note: Overlap Therapy is Warfarin and Anticoagulant Meds if any: NOT Prescribed or Continued at Discharge
[2017-02-02 08:04] LABS: ABSOLUTE BASOPHIL COUNT 0 /CUMM (0.0-0.2); ABSOLUTE EOSINOPHIL COUNT 0.2 /CUMM (0.0-0.7); ABSOLUTE GRANULOCYTE CT 2.8 /CUMM (1.4-6.5); ABSOLUTE MONOCYTE COUNT 0.7 /CUMM (0.10-0.60); BASOPHIL % 0.6 % (0.0-2.0); EOSINOPHIL % 2.7 % (0-5); HEMATOCRIT 35.3 % (42-52); MEAN CORPUSCULAR HGB 30.4 PG (27.0-31.0); MEAN CORPUSCULAR HGB CONC 32.5 G/DL (33.0-37.0); MEAN CORPUSCULAR VOLUME 93.5 FL (80.0-94.0); MEAN PLATELET VOLUME 8.5 FL (7.4-10.4); RBC DISTRIBUTION WIDTH 13.9 % (11.5-14.5); RED BLOOD CELL CT 3.78 /CUMM (4.70-6.10); WHITE BLOOD CELL COUNT 6.8 /CUMM (4.8-10.8)
[2017-02-02 08:52] LABS: PLATELET COUNT 174 /CUMM (130-400)
[2017-02-02 14:32] VITALS: BP 108/88
--- NOTE | 2017-02-14 11:26 | Discharge Summary ---
Visit Information Visit Dates Admission Date: 01/24/17 Discharge Date: 02/02/17 Hospital Course Course Attending Physician: MAGDALENE HENRY MD Primary Care Physician: PATIENT HAS NO PRIMARY CARE DR Hospital Course: Patient was admitted on the eighth small bowel obstruction. Next 3 days it became apparent that he was not significantly improving to the point of being able to feed him and the x-rays showed persistent significant distention suite brought into the operating room on the where the obstructed bowel was found to be viable there was some adhesions distally, no definite palpable foreign body within the small bowel. Postoperatively he gradually improved and then passed a foreign-body aplastic ice cube. It took some time for him to establish consistent bowel function and we had to check to make sure he could eat without vomiting. He was doing well on the and was discharged home. Allergies: Coded Allergies: No Known Allergies (12/12/16) Disposition Summary Disposition Principal Diagnosis: Small bowel obstruction Additional Diagnosis: None acute Discharge Disposition: home or self care Discharge Instructions General Discharge Information Code Status: Full Code Patient's Diet: No acute changes Patient's Activity: Avoid heavy lifting Follow-Up Instructions/Appts: Next week to remove mary anne call sooner if any new redness at the incision or vomiting or fevers Medications at Discharge Discharge Medications: Continue taking these medications: Oxcarbazepine (Oxcarbazepine) 300 MG TABLET 2 Tablet ORAL TWICE DAILY Qty = 120 Levetiracetam (Levetiracetam) 500 MG TABLET 2 Tablet ORAL TWICE DAILY Qty = 120 Divalproex Sodium (Divalproex Sodium ER) 500 MG TAB.ER.24H 1 Tablet ORAL THREE TIMES DAILY Qty = 90 Albuterol Sulfate (Proair Hfa) 90 MCG HFA.AER.AD 2 Puff Inhale through mouth as needed for ASTHMA Qty = 17 Ammonium Lactate (Ammonium Lactate) 12 % LOTION 1 Application On the skin DAILY Qty = 225 Copies To: MAGDALENE HENRY MD
== END 2017-02-02 14:50 | DRG 224 ==
LOC: ERH 13:17 → 2NA 17:57 → ERHI 17:57 → ENRESERV 01-25 10:31 → 2NA 01-25 11:54 → ENPENDDIS 02-02 14:27 → 2NA 02-02 14:50
PROVIDERS: Nurse Practitioner; Physician Assistant; Physician Assistant Surgical; ADMIT Surgery
PROC: 0D9670Z Drainage of Stomach with Drainage Device, Via Natural or Artificial Opening (ICD-10-PCS; 2017-01-25)
PROC: 0WJP0ZZ Inspection of Gastrointestinal Tract, Open Approach (ICD-10-PCS; principal; 2017-01-27)
PROC: 0DNB0ZZ Release Ileum, Open Approach (ICD-10-PCS; principal; 2017-01-27)
DX: K56.5 Intestinal adhesions [bands] with obstruction (postinfection) (principal); G40.909 Epilepsy, unspecified, not intractable, without status epilepticus; R47.9 Unspecified speech disturbances; Q75.3 Macrocephaly; R39.81 Functional urinary incontinence; F79 Unspecified intellectual disabilities; E86.0 Dehydration; R00.0 Tachycardia, unspecified
CPT/HCPCS: 2NAP; ERO; 36415; 74000; 74020; 74177; 81001; 82436; 87040; 87086; 93005; 93010; 96361; 96374; 96375; 97116-GO; 97161-GP; 97530-GO; 99291; J0131; J1644; J1953; J2405; J3490; J7042

== ENCOUNTER 2018-02-11 16:06 | Emergency (ER) | payer OTHER ==
[~2018-02-11] VITALS: Ht 162.6 cm; Wt 47.6 kg
--- NOTE | 2018-02-11 17:10 | ED SKIN/ALLERGY COMPLAINT ---
History of Present Illness General Chief Complaint: Skin Rash/ Abcess Stated Complaint: ABCESS ON ABD Source: patient Exam Limitations: no limitations Vital Signs & Intake/Output Vital Signs & Intake/Output Vital Signs Date Time Temp Pulse Resp B/P B/P Pulse O2 O2 Flow FiO2 Mean Ox Delivery Rate 02/11 1722 97.1 88 18 102/64 97 Room Air 02/11 1613 97.8 94 18 97/68 97 Room Air Allergies Coded Allergies: No Known Allergies (12/12/16) Reconcile Medications Albuterol Sulfate (Proair Hfa) 90 MCG HFA.AER.AD 2 PUF INH PRN ASTHMA ( Reported) Ammonium Lactate 12 % LOTION 1 CELESTE TOP DAILY SKIN (Reported) Divalproex Sodium (Divalproex Sodium ER) 500 MG TAB.ER.24H 1 TAB PO TID SEIZURES (Reported) Levetiracetam 500 MG TABLET 2 TAB PO BID SEIZURES (Reported) Oxcarbazepine 300 MG TABLET 2 TAB PO BID SEIZURES (Reported) Sulfamethoxazole/Trimethoprim (Bactrim Ds Tablet) 800 MG-160 MG TABLET 1 TAB PO BID abscess Triage Note: MOTHER BRINGS HIM IN FOR EVALUATION OF POSSIBLE ABSCESS IN THE ABDOMEN OVER OLD SCAR TISSUE. AREA NOTED TO BE RED, SWOLLEN AND TENDER TO THE TOUCH. Triage Nurses Notes Reviewed? yes Onset: Abrupt Duration: day(s): Timing: recent history Severity: mild Location: torso HPI: 22-year-old male with a history of MR brought in for evaluation of swelling and redness to lower abdomen. Mom reports that she does shave over this area. Patient is not able to offer any information. No fever or chills or vomiting according to mom. Denies any other associated symptoms. (Sree Laguna) Past History Travel History Traveled to [place] past 21 day No Medical History Any Pertinent Medical History? 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 No (Sree Laguna) Review of Systems Review of Systems Constitutional: Reports: no symptoms. EENTM: Reports: no symptoms. Respiratory: Reports: no symptoms. Cardiovascular: Reports: no symptoms. GI: Reports: no symptoms. Genitourinary: Reports: no symptoms. Musculoskeletal: Reports: no symptoms. Skin: Reports: see HPI. Neurological/Psychological: Reports: no symptoms. Hematologic/Endocrine: Reports: no symptoms. Immunologic/Allergic: Reports: no symptoms. All Other Systems: Reviewed and Negative (Sree Laguna) Physical Exam Physical Exam General Appearance: well developed/nourished, mild distress Head: atraumatic Eyes: Bilateral: normal appearance. Ears, Nose, Throat: normal ENT inspection, hearing grossly normal Neck: normal inspection Respiratory: no respiratory distress Back: normal inspection Extremities: normal inspection, normal range of motion, no edema Neurologic/Psych: awake, alert, oriented x 3, normal mood/affect Skin: intact Skin Problem Location: torso Skin Problem Character: Small area of fluctuance and some surrounding erythema located in the suprapubic region, fluctuance area is approximately 1 cm, the surrounding area of erythema is approximately 4-5 cm, (Sree Laguna) Progress Differential Diagnosis: abscess/cellulitis, contact dermatitis, drug reaction Plan of Care: Orders Procedure Date/time Status TRUNK AREA CULTURE 02/11 173 Active Microbiology 02/12 1720 TRUNK: Culture & Sensitivity - RECD 02/12 1720 TRUNK: Gram Stain - RECD (Sree Laguna) Departure Departure Disposition: HOME OR SELF CARE Condition: Stable Clinical Impression Primary Impression: Abdominal abscess Referrals: Unknown (PCP/Family) Additional Instructions: Take Bactrim as prescribed. Follow-up with primary care doctor on Tuesday. Warm soaks over the area. Return if any spreading of redness or any other concerns worsening symptoms. Please go over all results of today's visit with your primary care doctor. Contact your primary care doctor to let them know you were here in the emergency room. There may be nonspecific findings which may not be related to your visit today here in the emergency room but may require further evaluation and chronic monitoring by your primary care doctor. If you had a laceration today the chance of foreign body always remains. You should follow-up with your primary care doctor for recheck in 3-5 days for a wound check. If you had an x-ray done there is a chance that a fracture could have been missed on initial read and you should follow-up with your primary care doctor for repeat x-rays if symptoms persist. If your blood pressure was elevated here in the emergency room please have rechecked by hyour primary care doctor within the next 48. If you were prescribed a narcotic here in the emergency room or any type of controlled substances you're not allowed to drive while taking this medication or operate any type of heavy machinery. Narcotics can make you feel lightheaded dizziness nausea and can cause constipation. You may need to fish bait picker a stool softener. Thank you for choosing [facility] emergency room. Please return to the emergency room immediately if you have any other concerns worsening of symptoms. Departure Forms: Customer Survey General Discharge Information Prescriptions: Current Visit Scripts Sulfamethoxazole/Trimethoprim (Bactrim Ds Tablet) 1 TAB PO BID #14 TAB (Sree Laguna) PA/CERTIFIED PROSTHETIST/ORTHOTIST Co-Sign Statement Statement: ED Attending supervision documentation- [] I saw and evaluated the patient. I have also reviewed all the pertinent lab results and diagnostic results. I agree with the findings and the plan of care as documented in the PA's/CERTIFIED PROSTHETIST/ORTHOTIST's documentation. [x] I have reviewed the ED Record and agree with the PA's/CERTIFIED PROSTHETIST/ORTHOTIST's documentation. [] Additions or exceptions (if any) to the PAs/CERTIFIED PROSTHETIST/ORTHOTIST's note and plan are summarized below: [] (Lam YUSUF,Cristian Gutierrez) Procedures Incision and Drainage Site: lower abdomen Blade Size: 11 I & D Procedure: Yes: betadine prep, sterile dressing applied. Progress: Topical ethyl chloride, small incision made with 11 blade scalpel, fluid expressed, some purulent discharge, culture obtained (Sree Laguna)
[2018-02-11] MEDS ORDERED: BACTRIM DS TAB1 EACH PO (17:21)
[2018-02-11 17:22] VITALS: BP 102/64
== END 2018-02-11 17:25 ==
LOC: ERH 16:06
DX: L02.211 Cutaneous abscess of abdominal wall (principal)
CPT/HCPCS: 87070